=== PATIENT | male | born 1955 | race Caucasian/White ===

== ENCOUNTER 2023-02-03 11:45 | Outpatient (OUT) | payer MEDICARE, SELFPAY ==
[2023-02-03 12:19] LABS: Basophils Absolute Auto 0.1 10^3/uL (0.0-0.1); Basophils Percent Auto 0.6 % (0.2-2.0); Eosinophils Absolute Auto 0.3 10^3/uL (0.0-0.7); Eosinophils Percent Auto 3.7 % (0.9-7.0); Hematocrit 46.6 % (42.0-54.0); Hemoglobin 16.3 g/dL (14.0-18.0); Immature Granulocytes Abs Auto 0.04 10^3/uL (0.00-0.03); Immature Granulocytes Pct Auto 0.5 % (0.0-0.5); Lymphocytes Absolute Auto 2.3 10^3/uL (1.2-3.8); Lymphocytes Percent Auto 26.2 % (20.5-60.0); Mean Corpuscular Hemoglobin 32.1 pg (25.9-34.0); Mean Corpuscular Volume 91.9 fL (80.0-94.0); Mean Platelet Volume 8.9 fL (9.5-13.5); Monocytes Absolute Auto 0.7 10^3/uL (0.3-0.8); Monocytes Percent Auto 7.6 % (1.7-12.0); Neutrophils Absolute Auto 5.3 10^3/uL (1.4-6.5); Neutrophils Percent Auto 61.4 % (43.0-75.0); Platelet Count 268 10^3/uL (150-450); Red Blood Count 5.07 10^6/uL (4.70-6.10); Red Cell Distribution Width 13.1 % (11.0-15.0); White Blood Count 8.7 10^3/uL (4.0-11.0)
[2023-02-03 12:35] LABS: Alanine Aminotransferase 29 U/L (16-63); Albumin Globulin Ratio 0.9; Albumin Level 3.7 g/dL (3.4-5.0); Alkaline Phosphatase 68 U/L (46-116); Anion Gap 10.5; Aspartate Amino Transferase 18 U/L (15-37); BUN Creatinine Ratio 17.6; Bilirubin Direct 0.1 mg/dL (0.0-0.2); Bilirubin Total 0.7 mg/dL (0.2-1.0); Calcium 8.6 mg/dL (8.5-10.1); Carbon Dioxide 29.9 mmol/L (21.0-32.0); Chloride 104 mmol/L (98-107); Chol HDL Ratio 4.3; Cholesterol 202 mg/dL (<=200); Estimated GFR (African America >60 (>=60); Estimated GFR (Non-African Ame >60 (>=60); Globulin 3.9 g/dL; Glucose 97 mg/dL (74-106); HDL Cholesterol 47 mg/dL (40-60); Potassium 4.4 mmol/L (3.5-5.1); Sodium 140 mmol/L (136-145); Total Protein 7.6 g/dL (6.4-8.2); Triglycerides 99 mg/dL (<=150); Uric Acid 8.2 mg/dL (3.5-7.2); VLDL CHOLESTEROL 19.8 mg/dL
[2023-02-03 13:29] LABS: Prostate Specific Antigen Scrn 2.71 ng/mL (<=4.00)
== END 2023-02-03 11:46 | disposition home or self-care (01) ==
LOC: LAB 11:48
PROVIDERS: PCP Family Medicine; Visit Provider Family Medicine
DX: Z79.899 Other long term (current) drug therapy (principal); E78.5 Hyperlipidemia, unspecified; Z12.5 Encounter for screening for malignant neoplasm of prostate; M10.9 Gout, unspecified
CPT/HCPCS: 36415; 80048; 80061; 80076; 84550; 85025; G0103

== ENCOUNTER 2024-02-28 12:27 | Outpatient (OUT) | payer MEDICARE, SELFPAY ==
[2024-02-28 12:59] LABS: Basophils Percent Auto 0.4 % (0.2-2.0); Eosinophils Absolute Auto 0.2 10^3/uL (0.0-0.7); Eosinophils Percent Auto 2.4 % (0.9-7.0); Hematocrit 45.6 % (42.0-54.0); Hemoglobin 15.4 g/dL (14.0-18.0); Immature Granulocytes Abs Auto 0.05 10^3/uL (0.00-0.03); Immature Granulocytes Pct Auto 0.5 % (0.0-0.5); Lymphocytes Absolute Auto 2.4 10^3/uL (1.2-3.8); Lymphocytes Percent Auto 23.8 % (20.5-60.0); Mean Corpuscular HGB Conc 33.8 g/dL (29.9-35.2); Mean Corpuscular Hemoglobin 30.6 pg (25.9-34.0); Mean Corpuscular Volume 90.5 fL (80.0-94.0); Mean Platelet Volume 8.3 fL (9.5-13.5); Monocytes Absolute Auto 0.7 10^3/uL (0.3-0.8); Monocytes Percent Auto 6.9 % (1.7-12.0); Neutrophils Absolute Auto 6.5 10^3/uL (1.4-6.5); Platelet Count 292 10^3/uL (150-450); Red Blood Count 5.04 10^6/uL (4.70-6.10); Red Cell Distribution Width 13.2 % (11.0-15.0); White Blood Count 9.9 10^3/uL (4.0-11.0)
[2024-02-28 14:39] LABS: Prostate Specific Antigen Scrn 4.02 ng/mL (<=4.00)
[2024-02-28 14:55] LABS: Alanine Aminotransferase 29 U/L (16-63); Albumin Globulin Ratio 1.1; Albumin Level 3.9 g/dL (3.4-5.0); Alkaline Phosphatase 87 U/L (46-116); Anion Gap 14.4; Aspartate Amino Transferase 26 U/L (15-37); BUN Creatinine Ratio 16.5; Bilirubin Direct 0.2 mg/dL (0.0-0.2); Bilirubin Total 0.7 mg/dL (0.2-1.0); Calcium 9.1 mg/dL (8.5-10.1); Carbon Dioxide 27.6 mmol/L (21.0-32.0); Chloride 104 mmol/L (98-107); Chol HDL Ratio 3.2; Cholesterol 195 mg/dL (<=200); Estimated GFR (African America >60 (>=60 mL/min/1.73m^2); Estimated GFR (Non-African Ame >60 (>=60 mL/min/1.73m^2); Globulin 3.6 g/dL; Glucose 90 mg/dL (74-106); HDL Cholesterol 61 mg/dL (40-60); Sodium 142 mmol/L (136-145); Total Protein 7.5 g/dL (6.4-8.2); Triglycerides 81 mg/dL (<=150); Uric Acid 6.9 mg/dL (3.5-7.2); VLDL CHOLESTEROL 16.2 mg/dL
== END 2024-02-28 12:28 | disposition home or self-care (01) ==
LOC: LAB 12:32
PROVIDERS: PCP Family Medicine; Visit Provider Family Medicine
DX: E78.5 Hyperlipidemia, unspecified (principal); Z79.899 Other long term (current) drug therapy; M10.9 Gout, unspecified; Z12.5 Encounter for screening for malignant neoplasm of prostate
CPT/HCPCS: 36415; 80048; 80061; 80076; 84550; 85025; G0103

== ENCOUNTER 2024-03-14 12:47 | Outpatient (OUT) | payer MEDICARE, SELFPAY | END 2024-03-14 12:48 | disposition home or self-care (01) | LOC: PST 12:48 | PROVIDERS: PCP Family Medicine; Visit Provider Surgery | DX: Z01.818 Encounter for other preprocedural examination (principal); Z12.11 Encounter for screening for malignant neoplasm of colon ==

== ENCOUNTER 2024-03-21 08:50 | Day surgery (SDC) | payer MEDICARE, SELFPAY ==
[2024-03-21 09:20] VITALS: BP 138/96; PULSE 81; TEMP 36.4; O2SAT 97; BMI 24.9
[2024-03-21] MEDS: 0.9 % SODIUM CHLORIDE 500 ML 50 ML IV (09:30)
--- NOTE | 2024-03-21 11:26 | P.ON_ITS ---
Date of procedure: 03/21/24 Pre-op diagnosis: screening colonoscopy Post-op diagnosis: other (significant sigmoid diverticulosis, flat polyp at 27cm removed, external hemorrhoids- non thrombosed ) Procedure: Previous colonoscopy: 2010 procedure: colonoscopy with polypectomy cold snare at 27cm The patient was given IV conscious sedation.? The patient's SPO2 remained above 90% throughout the procedure. The colonoscope was inserted per rectum and advanced under direct vision to the cecum without difficulty.? The prep was good.? Findings: Terminal ileum os: normal Cecum/Ascending colon: normal Transverse colon: normal Descending/Sigmoid colon: significant diverticulosis, flat .6mm polyp removed completely via cold snare Rectum/Anus: examined in normal and retroflexed positions moderate internal hemorrhoids and large external hemorrhoids with small area of ulceration, no si gns of thrombosis Withdrawal Time was (minutes): 15 The colon was decompressed and the scope was removed.? The patient tolerated the procedure well. Recommendations/Plan: 1.? Lifestyle and dietary modifications as discussed 2.? F/U Biopsies 3. Referral to rectal surgeon for possible hemorrhoidectomy 4.? Discussed with the family, pt needs to be on daily stool softener and miralax Anesthesia: MAC Surgeon: Deo Arenas Estimated blood loss (mL): 3 Pathology: other (27cm colon polyp ) Condition: stable Disposition: PACU
[2024-03-21 11:53] VITALS: BP 143/92; PULSE 83; TEMP 36.9; O2SAT 96
[2024-03-21 12:08] VITALS: BP 151/95; PULSE 78; O2SAT 97
[2024-03-21 12:23] VITALS: BP 175/72; PULSE 78; O2SAT 98
== END 2024-03-21 12:23 | disposition home or self-care (01) ==
PROVIDERS: PCP Family Medicine; Visit Provider Surgery
PROC: (CPT 45385; principal; 2024-03-21 10:20)
DX: Z12.11 Encounter for screening for malignant neoplasm of colon (principal); K57.30 Diverticulosis of large intestine without perforation or abscess without bleeding; K64.4 Residual hemorrhoidal skin tags; K64.8 Other hemorrhoids; Z87.891 Personal history of nicotine dependence; K63.5 Polyp of colon
CPT/HCPCS: 45385; J2704

== ENCOUNTER 2024-09-20 14:12 | Outpatient (OUT) | payer MEDICARE, SELFPAY ==
--- OUTSIDE RECORDS SUMMARY | 2024-09-20 13:15 | XMS_ITS | Encounter Summary ---
Author Organization [facility] Address [address] [facility] [place] [address] Care Team Providers Care Laminating Machine Offbearer Name Role Phone Casey Dick MD Primary Care Provider [phone] Reason for Visit * Reason Comments UTI Encounter Details Date Type Department Care Team ([facility] st Contact Info) Description 09/20/2024 1:15 PM EDT Office Visit [facility] [address] [place] [address] Casey Dick MD [address] [place] [address] Polyuria (Primary Dx); Benign prostatic hyperplasia with nocturia Social History Tobacco Use Types Packs/Day Years Used Date Smoking Tobacco: Never Smokeless Tobacco: Never PHQ-2 Answer Date Recorded Patient Health Questionnaire-2 Score 0 02/28/2024 Sex and Gender Information Value Date Recorded Sex Assigned at Not on file Legal Sex Male 6:56 PM EDT Gender Identity Not on file Sexual Orientation Not on file documented as of this encounter Last Filed Vital Signs Vital Sign Reading Time Taken Comments Blood Pressure 118/66 09/20/2024 1:29 PM EDT Pulse 86 09/20/2024 1:29 PM EDT Temperature 36.2 C (97.1 F) 09/20/2024 1:29 PM EDT Respiratory Rate 20 09/20/2024 1:29 PM EDT Oxygen Saturation 96% 09/20/2024 1:29 PM EDT Inhaled Oxygen Concentration - - Weight 79.8 kg (176 lb) 09/20/2024 1:29 PM EDT Height 177.8 cm (5' 10 ) 09/20/2024 1:29 PM EDT Body Mass Index 25.25 09/20/2024 1:29 PM EDT documented in this encounter Progress Notes * Casey Dick MD - 09/20/2024 1:57 PM EDTAssociated Problem(s): Benign prostatic hyperplasia with nocturia Signs of enlarged prostate and try flomax. Repeat PSA with %free. * Casey Dick MD - 09/20/2024 1:57 PM EDTAssociated Problem(s): Polyuria Urinary symptoms likely related to BPH. UA normal and will send for culture. * Casey Dick MD - 09/20/2024 1:15 PM EDT Images from the original note were not included. Subjective Patient ID: Eric Ruvalcaba is a 69 y.o. male who presents for UTI. Concerned of UTI. C/o urinary symptoms for months. Increased frequency and urgency. At times feels like not able to hold and has to find bathroom. Weak stream and often will have hesitancy. Needs to strain to start flow of urine. Feels like not emptying all the way and at times dribbling at end of voiding. No change in color but stronger odor. Up 3-4 times a night to void. Labs in fall showed minimal elevation of PSA at 4.02. Review of Systems Constitutional: Negative for fatigue. Respiratory: Negative for cough, shortness of breath and wheezing. Cardiovascular: Negative for chest pain and palpitations. Gastrointestinal: Negative for abdominal pain, diarrhea, nausea and vomiting. Genitourinary: Negative for dysuria. Objective Physical Exam Constitutional: General: He is not in acute distress. Appearance: Normal appearance. HENT: Head: Normocephalic. Right Ear: Tympanic membrane and ear canal normal. Left Ear: Tympanic membrane and ear canal normal. Eyes: Extraocular Movements: Extraocular movements intact. Pupils: Pupils are equal, round, and reactive to light. Cardiovascular: Rate and Rhythm: Normal rate and regular rhythm. Heart sounds: No murmur heard. No friction rub. No gallop. Pulmonary: Breath sounds: Normal breath sounds. No wheezing, rhonchi or rales. Abdominal: General: Bowel sounds are normal. There is no distension. Palpations: Abdomen is soft. Tenderness: There is no abdominal tenderness. There is no guarding or rebound. Musculoskeletal: Left lower leg: No edema. Neurological: Mental Status: He is alert. Assessment/Plan Problem List Items Addressed This Visit Polyuria - Primary Urinary symptoms likely related to BPH. UA normal and will send for culture. Relevant Orders POCT Urinalysis dipstick (Completed) URINARY TRACT INFECTION (HTRX) Benign prostatic hyperplasia with nocturia Signs of enlarged prostate and try flomax. Repeat PSA with %free. Relevant Medications tamsulosin (Flomax) 0.4 MG 24 hr capsule Other Relevant Orders PSA, total and free documented in this encounter Plan of Treatment Upcoming Encounters Date Type Department Care Team (Late st Contact Info) Description 03/05/2025 11:30 AM EST [facility] [address] [place] [address] Casey Dick MD [address] [place] [address] Scheduled Orders Name Type Priority Associated Diagnoses Orde r Schedule PSA, total and free Lab Routine Benign prostatic hyperplasia with nocturia Expected: 09/20/2024 (Approximate), Expires: 09/20/2025 URINARY TRACT INFECTION (HTRX) Lab Routine Polyuria Expected: 09/20/2024 (Approximate), Expires: 09/20/2025 documented as of this encounter Procedures Procedure Name Priority Date/Time Associated Diagnosis Comments POCT URINALYSIS DIPSTICK Routine 09/20/2024 1:48 PM EDT Polyuria documented in this encounter Results * POCT Urinalysis dipstick (09/20/2024 1:48 PM EDT) Color, UA Yellow Clarity, UA Clear Glucose, UA Negative Negative - 2000(110) ++++ mg/dL Bilirubin, UA Negative Negative - 4(70) +++ mg/dL Ketones, UA Negative Negative - 160(16) ++++ mg/dL Spec Grav, UA 1.025 1 - 1.03 Blood, UA Negative Negative - 50 Ezequiel/mcL pH, UA 5.5 5 - 9 Protein, UA Negative Negative - 2000(20) ++++ mg/dL Urobilinogen, UA 0.2 0.2 - 12 mg/dL Leukocytes, UA Negative Negative - 500+++ Nitza/mcL Nitrite, UA Negative Negative - Positive Urine 09/20/2024 1:48 PM EDT Casey Dick MD POINT OF CARE TEST ENTER/EDIT OR DERABLES Final Result documented in this encounter Visit Diagnoses Diagnosis Polyuria- Primary Benign prostatic hyperplasia with nocturia documented in this encounter Additional Health Concerns Assessment Noted Time PHQ-9 Depression Total Score: 0 02/28/20 24 11:00 AM EST documented as of this encounter Care Teams Laminating Machine Offbearer Relationship Specialty Start Date End Date Casey Dick MD [address] [place] [address] PCP - General Family Medicine 09/21/23 documented as of this encounter
--- OUTSIDE RECORDS SUMMARY | 2024-09-20 14:18 | XMS_ITS | Clinical Summary ---
Author Organization [facility] Address [address] [place] [address] Care Team Providers Care Sales Development Representative Name Role Phone Casey Dick MD Primary Care Provider [phone] Allergies No known active allergies Medications allopurinol (Zyloprim) 100 MG tabletIndication s:Gout, arthritis Take 1 tablet (100 mg) by mouth Daily 90 tablet 3 03/23/2024 Active tamsulosin (Flomax) 0.4 MG 24 hr capsuleIndicatio ns:Benign prostatic hyperplasia with nocturia Take 1 capsule (0.4 mg) by mouth Daily 30 capsule 5 09/20/2024 Active Active Problems Problem Noted Date Diagnosed Date Polyuria 09/20/2024 Assessment & Plan (09/20/2024 1:57 PM EDT): Urinary symptoms likely related to BPH. UA normal and will send for culture. Benign prostatic hyperplasia with nocturia 09/20 Assessment & Plan (09/20/2024 1:57 PM EDT): Signs of enlarged prostate and try flomax. Repeat PSA with %free. Medicare annual wellness visit, subsequent 02/27 Assessment & Plan (02/28/2024 12:14 PM EST): Due for labs. Over 10 years since last colonoscopy and willing to have repeat procedure. Referral in chart. Discussed proper diet and regular aerobic exercise. Need aerobic exercise 5-6 days a week for 30 minutes at a time. Smaller portions and limit total calories. Tetanus every 10 years. Advised not to smoke. Encounter for long-term (current) use of medicat ions 02/28/2024 Screening PSA (prostate specific antigen) 2023 Dyslipidemia 09/21/2023 Gout, arthritis 09/21/2023 Assessment & Plan (09/21/2023 1:23 PM EDT): Painful flare of gout and start prednisone. Use motrin PRN for pain. Increased flares and start allopurinol. Resolved Problems Problem Noted Date Diagnosed Date Resolved Date Underweight 09/21/2023 02/28/2024 Encounters Date Type Department Care Team Description 09/20/2024 1:15 PM EDT Office Visit [facility] [address] [place] [address] Casey Dick MD Polyuria (Primary Dx); Benign prostatic hyperplasia with nocturia 09/20/2024 Bamboo flowsheet [facility] [address] [place] [address] Casey Dick MD from Last 3 Months Social History Tobacco Use Types Packs/Day Years Used Date Smoking Tobacco: Never Smokeless Tobacco: Never Tobacco Cessation:Counseling Given: Not Answered PHQ-2 Answer Date Recorded Patient Health Questionnaire-2 Score 0 02/28/2024 Sex and Gender Information Value Date Recorded Sex Assigned at Not on file Legal Sex Male 6:56 PM EDT Gender Identity Not on file Sexual Orientation Not on file Last Filed Vital Signs Vital Sign Reading [...] Mass Index 25.25 09/20/2024 1:29 PM EDT Plan of Treatment Upcoming Encounters Date Type Department Care Team (Late st Contact Info) Description 03/05/2025 11:30 AM EST Office Visit [facility] [address] [place] [phone] Casey Dick MD [address] [place] [phone] Health Maintenance Due Date Last Done Comments CT Colonography 1953 FIT-DNA 1955 FIT 1955 FOBT 1955 Sigmoidoscopy 1955 Pneumococcal Vaccine: 65+ Ye ars (3 of 3 - PCV20 or PCV21) 06/04/2021 06/04/2016, 09/18/2007 Influenza Vaccine (Season Ended) 2024 Medicare Annual Wellness (AWV) 02/27/2025 02/28/2024 Colonoscopy 03/21/2034 03/21/2024 Colorectal Cancer Screening 03/21/2034 Procedures Procedure Name Priority Date/Time Associated Diagnosis Comments POCT URINALYSIS DIPSTICK Routine 09/20/2024 1:48 PM EDT Polyuria from Last 3 Months Results * POCT Urinalysis dipstick (09/20/2024 1:48 [...] CARE TEST ENTER/EDIT OR DERABLES Final Result from Last 3 Months Insurance MEDICARE Care Teams Sales Development Representative Relationship Specialty Start Date End Date Casey Dick MD [address] [place] [address] PCP - General Family Medicine 09/21/23
--- OUTSIDE RECORDS SUMMARY | 2024-09-20 14:18 | XMS_ITS | Clinical Summary ---
Author Organization [facility] Address [id number] [address] [place] [address] Care Team Providers Care Research Specialist Name Role Phone Unavailable Primary Care Provider Unavailabl e Social History Tobacco Use Types Packs/Day Years Used Date Smoking Tobacco: Never Assessed Childcare Answer Date Recorded Childcare Unknown 09/28/2018 Employment Answer Date Recorded Employment Unknown 09/28/2018 Purpose - Life Answer Date Recorded Purpose and direction in life Unknown Sex and Gender Information Value Date Recorded Sex Assigned at Not on file Legal Sex Male 11:38 AM EDT Gender Identity Not on file Sexual Orientation Not on file Plan of Treatment Health Maintenance Due Date Last Done Comments Depression Screening 1965 Tobacco Screening 1965 Adult BMI Screening 1971 DTaP,Tdap and Td Vaccines (1 - Tdap) 01/17/1972 Zoster (Shingles) Vaccine (1 of 2) 2003 Fall Risk Screening 2018 Influenza Vaccine 12/18/2024 Medical Devices Not on file
--- OUTSIDE RECORDS SUMMARY | 2024-09-20 14:18 | XMS_ITS | Encounter Summary ---
Author Organization [facility] Address [address] [facility] [address] Care Team Providers Care Nail Setter Name Role Phone Casey Dick MD Primary Care Provider [phone] Encounter Details Date Type Department Care Team ([facility] Contact Info) Description 09/20/2024 Bamboo flowsheet [facility] [address] [place] [address] Casey Dick MD [address] [place] [phone] Social History Tobacco Use Types Packs/Day Years Used Date Smoking Tobacco: Never Smokeless Tobacco: Never PHQ-2 Answer Date Recorded Patient Health Questionnaire-2 Score 0 02/28/2024 Sex and Gender Information Value Date Recorded Sex Assigned at Not on file Legal Sex Male 6:56 PM EDT Gender Identity Not on file Sexual Orientation Not on file documented as of this encounter Plan of Treatment Upcoming Encounters Date Type Department Care Team ([facility] Contact Info) Description 03/05/2025 11:30 AM EST Office Visit [facility] [address] [place] [address] Casey Dick MD [address] [place] [phone] documented as of this encounter Visit Diagnoses Not on filedocumented in this encounter Additional Health Concerns Assessment Noted Time PHQ-9 Depression Total Score: 0 02/28/20 24 11:00 AM EST documented as of this encounter Care Teams Nail Setter Relationship Specialty Start Date End Date Caesy Dick MD [address] [place] [address] PCP - General Family Medicine 09/21/23 documented as of this encounter
[2024-09-21 08:09] LABS: PSA, Free 0.74 ng/mL; Prostate Specific Ag 3.1 ng/mL (0.0-4.0)
== END 2024-09-20 14:13 | disposition home or self-care (01) ==
LOC: LAB 14:14
PROVIDERS: PCP Family Medicine; Visit Provider Family Medicine
DX: N40.1 Benign prostatic hyperplasia with lower urinary tract symptoms (principal); R35.1 Nocturia
CPT/HCPCS: 36415; 84153; 84154

== ENCOUNTER 2025-03-05 12:57 | Outpatient (OUT) | payer MEDICARE, SELFPAY ==
--- OUTSIDE RECORDS SUMMARY | 2025-03-05 13:05 | XMS_ITS | CCD ---
Author Organization [facility] Care Team Providers Care [employer] Name Role Phone DR CASEY OSCAR Attending Unavailable DAYNE, DR CASEY Henderson Consulting Unavailable DAYNE, DR CASEY Henderson Primary Care Unavailable DAYNE, DR CASEY Henderson Admitting Unavailable Casey Oscar MD Primary Care Provider Sunday Arenas Attending Unavailable Sunday Arenas Admitting Unavailable Casey Oscar MD Unavailable CASEY OSCAR Attending Unavailable DAYNE, CASEY Attending Unavailable CASEY OSCAR Attending Unavailable SUNDAY ARENAS Attending Unavailable CASEY OSCAR Referring Unavailable Casey Oscar MD Primary Care Provider [phone] CASEY OSCAR Referring Unavailable CASEY OSCAR Primary Care Unavailable CASEY OSCAR Referring Unavailable CASEY OSCAR Primary Care Unavailable CASEY OSCAR Referring Unavailable CASEY OSCAR Primary Care Unavailable PARDEEP TEIXEIRA Admitting Unavailable PARDEEP TEIXEIRA Attending Unavailable PARDEEP TEIXEIRA Referring Unavailable CASEY OSCAR Primary Care Unavailable PARDEEP TEIXEIRA Attending Unavailable CASEY OSCAR Referring Unavailable CASEY OSCAR Primary Care Unavailable ANUM TINOCO Attending Unavailable CASEY OSCAR Referring Unavailable CASEY OSCAR Primary Care Unavailable Medications Current Medications MedicationDrug Class(es)DatesSig (Normalized)Sig (Original)ACETAMINOPHEN EXTRA STRENGTH ORAL (1 source)take 2 tablets by mouth once daily as neededACETAMINOPHEN EXTRA STRENGTH ORAL Take 2 tablets by mouth daily as needed. Activeallopurinol 100 mg oral tablet (19 sources)Xanthine Oxidase InhibitorStart: 19-94-1290erki 1 tablet by mouth once dailyallopurinol (Zyloprim) 100 MG tablet Indications: Gout, arthritis Take 1 tablet (100 mg) by mouth Daily 90 tablet 3 03/23/2024 ActiveStart: 09-21-2023 End: 42-33-5313tjbu 1 tablet by mouth once dailyallopurinol (Zyloprim) 100 MG tablet Indications: Gout, arthritis Take 1 tablet (100 mg) by mouth Daily 90 tablet 3 02/28/2024 Activetake 0.5 tablet by mouth in the morningallopurinoL (ZYLOPRIM) 100 mg tablet Take 0.5 tablets (50 mg total) by mouth in the morning. Activetamsulosin hydrochloride 0.4 mg oral capsule (9 sources)alpha-Adrenergic BlockerStart: 59-41-0234zwxe 1 capsule by mouth once dailytamsulosin (Flomax) 0.4 MG 24 hr capsule Indications: Benign prostatic hyperplasia with nocturia Take 1 capsule (0.4 mg) by mouth Daily 30 capsule 5 09/20/2024 ActivetraMADol hydrochloride 50 mg oral tablet (5 sources)Opioid AgonistStart: 12-12-2024 End: 14-20-1124qiel 1 tablet by mouth four times daily as needed for pain traMADoL (ULTRAM) 50 mg tablet Take 1 tablet (50 mg total) by mouth 4 (four) times a day as needed for pain. 12/12/2024 Active Completed/Discontinued Medications MedicationDrug Class(es)DatesSig (Normalized)Sig (Original)acetaminophen 325 mg / oxyCODONE hydrochloride 5 mg oral tablet (1 source)Opioid AgonistStart: 01-09-2025 End: 94-95-5222czkTRRVEI-acetaminophen (PERCOCET) 5-325 mg per tablet Indications: Left inguinal hernia Take 1 tablet by mouth every 6 (six) hours as needed for pain for up to 12 doses. Max Daily Amount: 4 tablets 12 tablet 01/09/2025 01/23/2025 Discontinued (Therapy completed)bisacodyl 5 mg delayed release oral tablet (2 sources)Stimulant LaxativeStart: 03-01-2024 End: 12-08-7841vdhh 1 tablet by mouth oncebisacodyl (Dulcolax) 5 MG EC tablet Indications: Colon cancer screening Take 1 tablet (5 mg) by mouth 1 time for 1 dose Do not crush, chew, or split. Take as detailed on clinic hand out for colonoscopy prep 4 tablet 03/01/2024 03/01/2024 Expiredibuprofen 800 mg oral tablet (1 source)Nonsteroidal Anti-inflammatory DrugStart: 01-09-2025 End: 19-41-0527qqpw 1 tablet by mouth every eight hours as needed for pain ibuprofen (MOTRIN) 800 mg tablet Take 1 tablet (800 mg total) by mouth every 8 (eight) hours as needed for pain. 30 tablet 01/09/2025 01/23/2025 Discontinued (Therapy completed)polyethylene glycol 3350 58418 mg powder for oral solution (2 sources)Osmotic LaxativeStart: 03-01-2024 End: 78-49-0255fhfa 17 g by mouth oncepolyethylene glycol, PEG, 3350 (Glycolax) 17 GM/SCOOP powder Indications: Colonoscopy Take 238 g bymouth 1 (one) time for 1 dose Take as detailed from clinic hand out for colonoscopy prep 238 g 03/0103/01/2024 Problems Active Problems Problem ClassificationProblemDateDocumented DateEpisodic/ChronicAbdominal hernia (11 sources)Left inguinal hernia ; Translations: [Unilateral inguinal hernia, without obstruction or gangrene, not specified as recurrent]Onset: 12-12-2024 10-22-8037BndthkraNtmoutewf of lipid metabolism (17 sources)Hyperlipidemia, unspecified; Translations: [Dyslipidemia]Onset: 604827-71-7233BvbbgbaTqjsdtyzp hypertension (3 sources)Hypertensive disorder; Translations: [Essential (primary) hypertension]Onset: 679926-83-9501JeqblxdJxttwvwlxfaje symptoms and ill- defined conditions (8 sources)Polyuria; Translations: [Polyuria]Onset: 131464-05-1712Qesecvcc Gout and other crystal arthropathies (16 sources)Gouty arthropathy; Translations: [Gout, unspecified]Onset: 610433-03-6783YwczelrAfmhykyuksd of prostate (8 sources)Nocturia due to benign prostatic hypertrophy; Translations: [Benign prostatic hyperplasia with lower urinary tract symptoms]Onset: 09-20-2024 89-61-5366ZwwiuytEqoqp aftercare (4 sources)Other terminal superintendent (current) drug therapy; Translations: [OTH JAIL CURRENT DRUG THERAPY]Onset: 38-32-5961ZkvrlmlwZojys gastrointestinal disorders (1 source)Personal history of other diseases of the digestive system; Translations: [Personal history of other diseases of the digestive system]Onset: 78-92-1422GvgmyftjXnehhrsw codes; unclassified (1 source)Other specified postprocedural states; Translations: [Other specified postprocedural states]Onset: 83-21-1034HfkhmrbgDzpoilgtxdip (2 sources)Autogenerated ProblemOnset: 892664-17-8290Aabtpapwwnaj (1 source)Post-opOnset: 01-23-2025 Past or Other Problems Problem ClassificationProblemDateDocumented DateEpisodic/ChronicMood disorders (14 sources)Mood disordersOnset: Other aftercare (16 sources)Long-term current use of drug therapy; Translations: [Other terminal superintendent (current) drug therapy]Onset: 890494-50-7127IglzapnkIiyir nutritional; endocrine; and metabolic disorders (14 sources)Underweight; Translations: [Underweight]Onset: 09-21-2023 Resolved: 925208-46-7196PykqrdnuFzyub screening for suspected conditions (not mental disorders or infectious disease) (20 sources)Encounter for screening for malignant neoplasm of prostate; Translations: [Patient encounter status]Onset: 050629-36-5467Xupzmesv Unclassified (2 sources)Patient encounter -99-1254Ofkuflxtefhs (1 source)Preprocedural examination pzao25-46-2350 Results Test NameValueInterpretationReference RangeFacilityCBC (NO DIFF)on 12-28-2024 Erythrocyte distribution width (RBC) [Ratio]14.1 %Xejnzq74.5-15ProGrace Medical CenterComment on above:Performed By: #### CBC #### [facility] ([facility]) [address] [place] [address] VIRHematocrit (Bld) [Volume fraction]41.1 %Katthj68-05XizGtemlvGrace Medical CenterComment on above:Performed By: #### CBC #### [facility] ([facility]) [address] [place] [address] VIRHemoglobin (Bld) [Mass/Vol]14.0 g/gIBbcczk51-13LorNvvrirGrace Medical CenterComment on above:Performed By: #### CBC #### [facility] ([facility]) [address] [place] [address] VIRMCH (RBC) [Entitic mass]30.9 jgUfjwyi54-70KszFwifcwGrace Medical CenterComment on above:Performed By: #### CBC #### [facility] ([facility]) [address] [place] [address] VIRMCHC (RBC) [Mass/Vol]34.1 g/cVDfxczq04-74JxzGptumhGrace Medical CenterComment on above:Performed By: #### CBC #### [facility] ([facility]) [address] [place] [address] VIRMCV (RBC) [Entitic vol]91 yYKwivlb62-909GhcNljkta Fremont HospitalComment on above:Performed By: #### CBC #### [facility] ([facility]) [address] [place] [address] VIRPlatelet mean volume (Bld) [Entitic vol]7.0 fLNormal7-12 Madison HealthComment on above:Performed By: #### CBC #### [facility] ([facility]) [address] [place] [address] VIRPlatelets (Bld) [#/Vol]255 10*3/pJNccywp784-046SugJltitd Fremont HospitalComment on above:Performed By: #### CBC #### [facility] ([facility]) [address] [place] [address] VIRRBC COUNT4.53 X10E12/LNormal4.1-5.7Madison HealthComment on above:Performed By: #### CBC #### [facility] ([facility]) [address] [place] [address] VIRWBC (Bld) [#/Vol]7.4 10*3/uLNormal4-11Madison HealthComment on above:Performed By: #### CBC #### [facility] ([facility]) [address] [place] [address] VIRCOMPREHENSIVE METABOLIC PANELon 09-41-4526Rwxnfdl [Mass/Vol] 3.9 g/dLNormal3.2-5.3PGrant HospitalComment on above:Performed By: #### CMP #### [facility] ([facility]) [address] [place] [address] VIRALP [Catalytic activity/Vol]59 U/VPwrlbq38-703KryTeqkrpGrace Medical CenterComment on above:Performed By: #### CMP #### [facility] ([facility]) [address] [place] [address] VIRALT [Catalytic activity/Vol]10 U/LNormal<=40ProGrace Medical CenterComment on above:Performed By: #### CMP #### [facility] ([facility]) [address] [place] [address] VIRAnion gap [Moles/Vol]10 mmol/LNormal5-15ProGrace Medical CenterComment on above:Performed By: #### CMP #### [facility] ([facility]) [address] [place] [address] VIRAST [Catalytic activity/Vol]15 U/LNormal<=41ProGrace Medical CenterComment on above:Performed By: #### CMP #### [facility] ([facility]) [address] [place] [address] VIRBilirubin [Mass/Vol]0.8 mg/dLNormal0.3-1.2PGrant HospitalComment on above:Performed By: #### CMP #### [facility] ([facility]) [address] [place] [address] VIRCalcium [Mass/Vol]8.7 mg/dLNormal8.5-10.5PGrant HospitalComment on above:Performed By: #### CMP #### [facility] ([facility]) [address] [place] [address] VIRChloride [Moles/Vol]103 mmol/LTrtwxo70-102TnlHhqayrGrace Medical CenterComment on above:Performed By: #### CMP #### [facility] ([facility]) [address] [place] [address] VIRCO2 [Moles/Vol]25 mmol/ZGgfsbf17-89OudLjnhltGrant HospitalComment on above:Performed By: #### CMP #### [facility] ([facility]) [address] [place] [address] VIRCreatinine [Mass/Vol]0.92 mg/dLNormal0.60-1.30ProGrace Medical CenterComment on above:Result Comment: METHOD TRACEABLE TO IDMS STANDARDPerformed By: #### CMP #### [facility] ([facility]) [address] [place] [address] VIRGFR/1.73 sq M.predicted among non-blacks MDRD (S/P/Bld) [Vol rate/Area]89 mL/min/{1.73_m2}Normal>=60ProGrace Medical CenterComment on above:Result Comment: Reported eGFR is based on the CKD-EPI 2020 equation that does not use a race coefficient.Performed By: #### CMP #### [facility] ([facility]) [address] [place] [address] VIRGlucose [Mass/Vol]85 mg/aMHxmssc94-45BmhXvrookGrace Medical CenterComment on above:Performed By: #### CMP #### [facility] ([facility]) [address] [place] [address] VIRPotassium [Moles/Vol]4.3 mmol/LNormal3.5-5.0Madison HealthComment on above:Performed By: #### CMP #### [facility] ([facility]) [address] [place] [address] VIRProtein [Mass/Vol]6.7 g/dLNormal6.0-8.0ProGrace Medical CenterComment on above:Performed By: #### CMP #### [facility] ([facility]) [address] [place] [address] VIRSodium [Moles/Vol]138 mmol/UQdovfv287-739SuuMggwyz Fremont HospitalComment on above:Performed By: #### CMP #### [facility] ([facility]) [address] [place] [address] VIRUrea nitrogen [Mass/Vol]16 mg/dLNormal5-27ProGrace Medical CenterComment on above:Performed By: #### CMP #### [facility] ([facility]) [address] [place] [address] VIRECG 12 leadon 75-11-4076IDDLBEITELIEOUHpjKwcaxn Health SystemPSA TOTAL+% FREEon 09-21-2024% FREE PSA23.9 %.[facility] County [facility] HospitalComment on above:The table below lists the probability of prostate cancer for men with non-suspicious CECE results and total PSA between 4 and 10 ng/mL, by patient age (Romulo et al, MATT 1998, 279:1542). % Free PSA 50-64 yr 65-75 yr 0.00-10.00% 56% 55% 10.01-15.00% 24% 35% 15.01-20.00% 17% 23% 20.01-25.00% 10% 20% >25.00% 5% 9% Please note: Romulo et al did not make specific recommendations regarding the use of percent free PSA for any other population of men. Performed at: [facility] [id number] Telephone Lineman: Jm Rob PhD, Phone: [phone] Prostate specific Ag [Mass/Vol]3.1 ng/mL0.0 - 4.0 ng/mLNOMS HealthcareComment on above:David ECLIA methodology. According to the [place] [employer], Serum PSA should decrease and remain at undetectable levels after radical prostatectomy. The AUA defines biochemical recurrence as an initial PSA value 0.2 ng/mL or greater followed by a subsequent confirmatory PSA value 0.2 ng/mL or greater. Values obtained with different assay methods or kits cannot be used interchangeably. Results cannot be interpreted as absolute evidence of the presence or absence of malignant disease. PSA, FREE0.74 ng/mLN/ANOMS HealthcareComment on above:David ECLIA methodology. CLINISYNCBates County Memorial HospitalUrinalysis macro (dipstick) panel (U)on 09-20-2024 Bilirubin, UANegativeNegative - 4(70) +++ mg/dLNOMS HealthcareBlood, UANegative Negative - 50 Ezequiel/mcLNOMS HealthcareClarity, UAClearNOMS HealthcareColor, UA YellowNOMS HealthcareGlucose, UANegativeNegative - 2000(110) ++++ mg/dLNOMS HealthcareInterpretation and review of laboratory resultsNormalNONC Healthcare Ketones, UANegativeNegative - 160(16) ++++ mg/dLNOMS HealthcareLeukocytes, UA NegativeNegative - 500+++ Nitza/mcLNOMS HealthcareNitrite, UANegativeNegative - PositiveNOMS HealthcarepH, UA5.55 - 9NOMS HealthcareProtein, UANegativeNegative - 2000(20) ++++ mg/dLNOMS HealthcareSpec Grav, UA1.0251 - 1.03NOMS Healthcare Urobilinogen, UA0.20.2 - 12 mg/dLNOMS HealthcareNOMS HealthcarePathology Request for Lab Corpon 40-06-2680Gifamladf Request for Lab CorprmHCA Florida West Hospital Physician GroupComment on above:Order Comment: PATHOLOGY GI SPECIMENResult Comment: See report. Scanned copy available in EMR. PERFORMED BY: [address] [address] PATHOLOGIST DISABILITY COUNSELOR DERICK JONES M.D.Performed By: #### PATH TO [facility] #### [address] [place] [address] USAALL BASIC METABOLIC PANELon 34-10-2344Tulpw gap [Moles/Vol]14.4 mmol/LNOMS HealthcareCalcium [Mass/Vol]9.1 mg/dL8.5 - 10.1 mg/dL NOMS HealthcareChloride [Moles/Vol]104 mmol/L98 - 107 mmol/LNOMS HealthcareCO2 [Moles/Vol]27.6 mmol/L21.0 - 32.0 mmol/LNOMS HealthcareCreatinine [Mass/Vol]1.09 mg/dL0.70 - 1.30 mg/dLNOMS HealthcareGFR/1.73 sq M.predicted CKD-EPI (S/P/Bld) [Vol rate/Area]>60>=60 mL/min/1.73m 2NOMS HealthcareGlucose [Mass/Vol]90 mg/dL74 - 106 mg/dLNOMS HealthcarePotassium [Moles/Vol]4 mmol/L3.5 - 5.1 mmol/LNOMS HealthcareSodium [Moles/Vol]142 mmol/L136 - 145 mmol/LNOMS HealthcareTBH EGFR- NON AF [place]>60>=60 mL/min/1.73m 2NOMS HealthcareUrea nitrogen [Mass/Vol]18 mg/dL7.0 - 18.0 mg/dLNONC HealthcareUrea nitrogen/Creatinine [Mass ratio]16.5 mg/mgNOMS HealthcareALL CBC WITH AUTO DIFFon 61-09-0814CYGSMWPBN ABSOLUTE AUTO0 NOMS HealthcareBasophils/100 WBC (Bld)0.4 %0.2 - 2.0 %[facility] Healthcare Eosinophils/100 WBC (Bld)2.4 %0.9 - 7.0 %NOMS HealthcareErythrocyte distribution width (RBC) [Ratio]13.2 %11.0 - 15.0 %NOMS HealthcareHematocrit (Bld) [Volume fraction]45.6 %42.0 - 54.0 %NOMS HealthcareHemoglobin (Bld) [Mass/Vol]15.4 g/dL 14.0 - 18.0 g/dLNONC HealthcareIMMATURE GRANULOCYTES ABS AUTO0.05HighNOMS HealthcareImmature granulocytes/100 WBC (Bld)0.5 %0.0 - 0.5 %[facility] Interpretation and review of laboratory resultsAbnormalNOMS Healthcare LYMPHOCYTES ABSOLUTE AUTO2.4NOCarondelet HealthLymphocytes/100 WBC (Bld)23.8 %20.5 - 60.0 %[facility] (RBC) [Entitic mass]30.6 pg25.9 - 34.0 pgFreeman Health SystemHC (RBC) [Mass/Vol]33.8 g/dL29.9 - 35.2 g/dLFreeman Health SystemV (RBC) [Entitic vol]90.5 fL80.0 - 94.0 fLBates County Memorial HospitalMONOCYTES ABSOLUTE AUTO0.7NONC HealthcareMonocytes/100 WBC (Bld)6.9 %1.7 - 12.0 %[facility] HospitalNEUTROPHILS ABSOLUTE AUTO6.5NOCarondelet HealthNeutrophils/100 WBC (Bld)66 %43.0 - 75.0 %[facility] Memorial HospitalPlatelet mean volume (Bld) [Entitic vol]8.3 fLLow9.5 - 13.5 fLBates County Memorial HospitalTB EO #0.2NOMS [facility] [id number] [facility] RBC5.04NOMercy [facility] WBC9.9B[facility] Memorial HospitalCLINISYNCNWestern Missouri Medical Center LIPID PROFILE (FASTING)on 44-41-0496ZGYN HDL RATIO3.2NOKLAHOMA HEARTH HOSPITAL SOUTH [facility] [place] HealthcareComment on above:3.3 - 4.4 LOW RISK 4.4 - 7.1 AVERAGE RISK 7.1 - 11.0 MODERATE RISK >11.0 HIGH RISK Cholesterol [Mass/Vol]195 mg/dLNINF - 200 mg/dLBates County Memorial HospitalCholesterol in HDL [Mass/Vol]61 mg/qJXqpl35 - 60 mg/dLVA HOSPITAL HealthcareComment on above:> or =60 mg/dl - LOW CARDIOVASCULAR RISK <40 mg/dl - HIGH CARDIOVASCULAR RISK Interpretation and review of laboratory resultsAbEaton Rapids Medical CenterMagnesium [Mass/Vol]118 mg/dLVA HOSPITAL HealthcareComment on above:<100 mg/dl OPTIMAL 100-129 mg/dl NEAR OR ABOVE OPTIMAL 130-159 mg/dl BORDERLINE HIGH 160-189 mg/dl HIGH >190 mg/dl VERY HIGH Magnesium [Mass/Vol]16.2 mg/dLBates County Memorial HospitalTriglyceride [Mass/Vol]81 mg/dLNINF - 150 mg/dLNOMS HealthcareALL URIC ACIDon 81-12-2414Xsjca [Mass/Vol]6.9 mg/dL 3.5 - 7.2 mg/dLBates County Memorial HospitalHMHP LIVER PANELon 56-06-2790Poefjmx [Mass/Vol]3.9 g/dL3.4 - 5.0 g/dLBates County Memorial HospitalALBUMIN GLOBULIN RATIO1.1NOKLAHOMA HEARTH [facility]OS[facility] [place] HealthcareALP [Catalytic activity/Vol]87 U/L46 - 116 U/LNOMS HealthcareALT [Catalytic activity/Vol]29 U/L16 - 63 U/LNOMS HealthcareAST [Catalytic activity/Vol]26 U/L 15 - 37 U/LNOMS HealthcareBilirubin [Mass/Vol]0.7 mg/dL0.2 - 1.0 mg/dLBates County Memorial HospitalBilirubin.indirect [Mass/Vol]0.2 mg/dL0.0 - 0.2 mg/dLBates County Memorial Hospital Globulin (S) [Mass/Vol]3.6 g/dLNONC HealthcareProtein [Mass/Vol]7.5 g/dL6.4 - 8.2 g/dLBates County Memorial HospitalNo Panel Informationon 19-35-8402XKLVMKVBJGPPA Healthcare SRMCOH PROSTATE SPECIFIC ANTIGEN SCRNon 38-92-6977Cggalbmszdlloe and review of laboratory resultsAbEaton Rapids Medical CenterPROSTATE SPECIFIC ANTIGEN SCRN4.02 ng/mLHighNINF - 4.00 ng/mLNOKLAHOMA HEARTH HOSPITAL SOUTH [facility] [place] HealthcareCLINISYNCNEllis Fischel Cancer CenterCBC AUTO DIFFon 93-12-0671YRAQ #0.0 103/ulNormal0.0-0.1[facility] Blanchard Valley HospitalComment on above: Performed By: #### CBC #### [facility] [address] [place] [address] Dr. Lori Ariassophils/100 WBC (Bld)0.5 %Normal0.2-2.0The [facility] Comment on above:Performed By: #### CBC #### [facility] [address] [place] [address] Dr. Lori Torres #0.2 103/ulNormal0.0-0.7The [facility]cy HealthComment on above: Performed By: #### CBC #### [facility] [address] [place] [address] Dr. Lori Dealosinophils/100 WBC (Bld)2.7 %Normal0.9-7.0[facility] Comment on above:Performed By: #### CBC #### [facility] [address] [place] [address] Dr. Lori Dealrythrocyte distribution width (RBC) [Ratio]12.8 %Tzshaf43.0-15.0 The Mercy HealthComment on above:Performed By: #### CBC #### [facility] [address] [place] [address] Dr. Lori SwiftHematocrit (Bld) [Volume fraction]48.4 %Zsnovt11.0-54.0The [facility]cy HealthComment on above:Performed By: #### CBC #### [facility] [address] [place] [address] Dr. Lori SwiftHemoglobin (Bld) [Mass/Vol]16.2 g/rXVnvvps45.0-18.0The [facility]cy HealthComment on above:Performed By: #### CBC #### [facility] [address] [place] [address] Dr. Lori Tolliver #0.06 10e3/ulCritically high0.00-0.03[facility] Comment on above:Performed By: #### CBC #### [facility] [address] [place] [address] Dr. Lori Tolliver %0.8 %Critically high0.0-0.5The [facility]cy HealthComment on above:Performed By: #### CBC #### [facility] [address] [place] [address] Dr. Lori SinghMPH #1.8 103/ulNormal1.2-3.8The Mercy HealthComment on above:Performed By: #### CBC #### [facility] [address] [place] [address] Dr. Lori Singhmphocytes/100 WBC (Bld)23.8 %Fbyciy11.5-60.0The Mercy HealthComment on above:Performed By: #### CBC #### [facility] [address] [place] [address] Dr. Lori GroveUAL DIFF REQNONormalThe Mercy HealthComment on above: Performed By: #### CBC #### [facility] [address] [place] [address] Dr. Lori Charlton (RBC) [Entitic mass]30.9 czKtzayu77.9-34.0The [facility]cy HealthComment on above:Performed By: #### CBC #### [facility] [address] [place] [address] Dr. Lori Charlton (RBC) [Mass/Vol]33.5 g/tVPmmdgn07.9-35.2The Mercy HealthComment on above:Performed By: #### CBC #### [facility] [address] [place] [address] Dr. Lori Charlton (RBC) [Entitic vol]92.4 lQPiglnx15.0-94.0The Mercy HealthComment on above:Performed By: #### CBC #### [facility] [address] [place] [address] Dr. Lori Brown #0.5 103/ulNormal0.3-0.8The [facility]cy HealthComment on above:Performed By: #### CBC #### [facility] [address] [place] [address] Dr. Lori Lentzocytes/100 WBC (Bld)7.1 %Normal1.7-12.0[facility] Comment on above:Performed By: #### CBC #### [facility] [address] [place] [address] Dr. Lori Chapa #4.9 103/ulNormal1.4-6.5The [facility]cy HealthComment on above:Performed By: #### CBC #### [facility] [address] [place] [address] Dr. Lori Ellisutrophils/100 WBC (Bld)65.1 %Sqrqfx07.0-75.0The [facility]cy Health[facility] on above:Performed By: #### CBC #### [facility] [address] [address] [address] Lori Chesterlet mean volume (Bld) [Entitic vol]9.0 fLCritically low 9.5-13.5The [facility] on above:Performed By: #### CBC #### [facility] [address] [address] [address] Lori SwiftPLT248 103/saVpwhgl036-845Odu [facility] on above: Performed By: #### CBC #### [facility] [address] [address] [address] Lori SwiftRBC5.24 106/ulNormal4.70-6.10The [facility] on above:Performed By: #### CBC #### [facility] [address] [place] [address] Dr. Lori SwiftWBC7.5 103/ulNormal4.0-11.0The [facility] on above: Performed By: #### CBC #### [facility] [address] [place] [address] Dr. Lori BruceID PROFILEon 48-50-8831ANQH-HDL RATIO [facility] on above:Result Comment: 3.3 - 4.4 LOW RISK 4.4 - 7.1 AVERAGE RISK 7.1 - 11.0 MODERATE RISK >11.0 HIGH RISKPerformed By: #### ALT, BMP, LIPID, AST #### [facility] [address] [place] [address] Dr. Lori SwiftCholesterol [Mass/Vol]201 mg/dLCritically high<=200The [facility] on above:Performed By: #### ALT, BMP, LIPID, AST #### [facility] [address] [place] [address] Dr. Lori Venturaesterol in HDL [Mass/Vol]51 mg/mMRiowow04-81CemB[facility] on above:Performed By: #### ALT, BMP, LIPID, AST #### [facility] [address] [address] [address] Lori SwiftCholesterol in LDL [Mass/Vol]133.6 mg/dLMetroHealth Main Campus Medical CenterComment on above:Performed By: #### ALT, BMP, LIPID, AST #### [facility] [address] [address] [address] Lori Venturaestermayda.total/Cholesterol in HDL [Mass ratio]3.9 {ratio} NormalBlanchard Valley Health System Blanchard Valley HospitalComment on above:Performed By: #### ALT, BMP, LIPID, AST #### [facility] [address] [address] [address] Lori Damico NORMAL> or = 60 mg/dl - LOW CARDIOVASCULAR RISK <40 mg/dl - HIGH CARDIOVASCULAR RISKMetroHealth Main Campus Medical CenterComment on above:Performed By: #### ALT, BMP, LIPID, AST #### [facility] [address] [address] [address] Lori SwiftLDL CALC NORMALSEE BELOWNoMercy Health Fairfield HospitalComment on above:Result Comment: <100 mg/dl OPTIMAL 100 - 129 mg/dl NEAR OR ABOVE OPTIMAL 130 - 159 mg/dl BORDERLINE HIGH 160 - 189 mg/dl HIGH >190 mg/dl VERY HIGH Performed By: #### ALT, BMP, LIPID, AST #### [facility] [address] [address] [address] Lori SwiftTriglyceride [Mass/Vol]82 mg/dLNormal<=150[facility] Comment on above:Performed By: #### ALT, BMP, LIPID, AST #### [facility] [address] [address] [address] Lori SwiftVLDL CALC16.4 mg/dLNoMercy Health Fairfield HospitalComment on above: Performed By: #### ALT, BMP, LIPID, AST #### [facility] [address] [address] [address] Lori SwiftPROF CHEM 8 (BAS METB)on 67-82-8871Zzcuc gap [Moles/Vol]9.7 mmol/LNormalBlanchard Valley Health System Blanchard Valley HospitalComment on above:Performed By: #### ALT, BMP, LIPID, AST #### [facility] [address] [place] [address] Dr. Lori SwiftCalcium [Mass/Vol]9.0 mg/dLNormal8.5-10.1The [facility] Comment on above:Performed By: #### ALT, BMP, LIPID, AST #### [facility] [address] [place] [address] Dr. Lori SwiftChloride [Moles/Vol]105 mmol/WUepomu91-752Ygi [facility] Comment on above:Performed By: #### ALT, BMP, LIPID, AST #### [facility] [address] [place] [address] Dr. Lori SwiftCO2 [Moles/Vol]30.8 mmol/ZWllgcm66.0-32.0The [facility] Comment on above:Performed By: #### ALT, BMP, LIPID, AST #### [facility] [address] [place] [address] Dr. Lori SwiftCreatinine [Mass/Vol]1.10 mg/dLNormal0.70-1.30The [facility] HealthComment on above:Performed By: #### ALT, BMP, LIPID, AST #### [facility] [address] [place] [address] Dr. Lori DealGFR-AF COSTA RICAN>60Normal>=60The [facility] HealthComment on above:Performed By: #### ALT, BMP, LIPID, AST #### [facility] [address] [place] [address] Dr. Lori DealGFR-NON AF COSTA RICAN>60Normal>=60The [facility] HealthComment on above:Performed By: #### ALT, BMP, LIPID, AST #### [facility] [address] [place] [address] Dr. Lori SwiftGlucose [Mass/Vol]118 mg/dLCritically qxid77-094Keh [facility] HealthComment on above:Performed By: #### ALT, BMP, LIPID, AST #### [facility] [address] [place] [address] Dr. Lori SwiftPotassium [Moles/Vol]4.5 mmol/LNormal3.5-5.1The [facility] Comment on above:Performed By: #### ALT, BMP, LIPID, AST #### [facility] [address] [address] [address] Lori SwiftSodium [Moles/Vol]141 mmol/ZPdwcps888-428Dqu [facility] Comment on above:Performed By: #### ALT, BMP, LIPID, AST #### [facility] [address] [address] [address] Lori SwiftUrea nitrogen [Mass/Vol]18.0 mg/dLNormal7.0-18.0The [facility] HealthComment on above:Performed By: #### ALT, BMP, LIPID, AST #### [facility] [address] [address] [address] Lori Apodaca nitrogen/Creatinine [Mass ratio]16.4 mg/mgNormalThe [facility]cy HealthComment on above:Performed By: #### ALT, BMP, LIPID, AST #### [facility] [address] [address] [address] Lori Napoles 37-50-9639YXE [Catalytic activity/Vol]13 U/LCritically low 15-37The [facility] HealthComment on above:Performed By: #### ALT, BMP, LIPID, AST #### [facility] [address] [address] [address] Lori Jennings 61-00-9476YMD [Catalytic activity/Vol]20 U/OMrbfrq57-10Qtb [facility] HealthComment on above:Performed By: #### ALT, BMP, LIPID, AST #### [facility] [address] [address] [address] Lori Swift Vital Signs Date TimeVital SignValuePerforming PxqntajdaCnwxfhtu38-17-8596 10:38-0400Body irwrrj302.7 cmAnum Tinoco APRN-ORTHOPAEDIC PHYSICIAN ASSISTANT Work Phone: [facility] [employer] Tmpaqg52-08-6325 10:38-0400Body mass index (BMI) [Ratio]24.48 kg/n7FrajgboAnum Tinoco APRN-RADHA Work Phone: [facility] [employer] Uvvcch50-61-9853 10:38-0400Body lksous37.03 kgAnum Tinoco APRN-RADHA Work Phone: [facility]10-07-2025 10:38-0400Diastolic blood dhlvwjid90 mm[Hg]Anum Tinoco APRN-RADHA Work Phone: [facility]10-07-2025 10:38-0400Heart rate 86 /minAnum Tinoco APRN-RADHA Work Phone: [facility]10-07-2025 10:38-0400Systolic blood mm[Hg]Anum Tinoco APRN-RADHA Work Phone: [facility] [employer] Eiyipe88-28-5879 10:07-0400Body mdzytl651.8 cmPardeep Teixeira DO Work Phone: [facility]09-10-2025 10:07-0400Body mass index (BMI) [Ratio]23.68 kg/q1Yxhtvspshelly Camps DO Work Phone: [facility]09-10-2025 10:07-0400Body ezkweb60.84 kgMicshelly Camps DO Work Phone: [facility] [employer] Tvoxpk32-28-8050 10:07-0400Diastolic blood xqjxzfbe70 mm[Hg]Pardeep Teixeira DO Work Phone: [facility]09-10-2025 10:07-0400Systolic blood mm[Hg]Pardeep Teixeira DO Work Phone: [facility]08-26-2025 14:07-0400Body .8 cmCasey Oscar MD Work Phone: [facility] HospitalQvwutdyynh86-36-1579 14:07-0400Body mass index (BMI) [Ratio]22.96 kg/m2Casey Oscar MD Work Phone: noCarondelet HealthPbrkdunmji64-34-0789 14:07-0400Body temperature 97.5 [degF]Casey Oscar MD Work Phone: [facility] HospitalTnmyhzrsvg25-66-9230 14:07-0400Body .58 kgCasey Oscar MD Work Phone: [facility] HospitalCttyaasqrd30-59-1840 14:07-0400Diastolic blood sljfjuml77 mm[Hg]Casey Oscar MD Work Phone: [facility] HospitalUyfnhxlrvs82-88-7852 14:07-0400Heart rate87 /min Casey Oscar MD Work Phone: [facility] HospitalLbmqkfoafh30-38-2887 14:07-0400Respiratory rate22 /minCasey Oscar MD Work Phone: [facility] HospitalVksjbhcycv09-71-3687 14:07-1098NdY5% (BldA) [Mass fraction]97 %Casey Oscar MD Work Phone: [facility] HospitalLebhiinzwt15-00-0334 14:07-0400Systolic blood elumxvwc348 mm[Hg]Casey Oscar MD Work Phone: [facility] HospitalMyngvyvgba07-13-5111 13:29-0400Body jiubej322.8 cmCasey Oscar MD Work Phone: [facility] HospitalAoufiafrbp08-72-0372 13:29-0400Body mass index (BMI) [Ratio]25.25 kg/m2Casey Oscar MD Work Phone: [facility] HospitalYuliflnvtz73-39-4680 13:29-0400Body temperature 97.11 [degF]Casey Oscar MD Work Phone: [facility] HospitalIdxkjrxsxb73-02-1777 13:29-0400Body .83 kgCasey Oscar MD Work Phone: noCarondelet HealthCqhyhwcpof91-04-1497 13:29-0400Diastolic blood mnphwebq75 mm[Hg]Casey Oscar MD Work Phone: [facility] HospitalIxlmodnhvj82-78-2128 13:29-0400Heart rate86 /min Casey Oscar MD Work Phone: [facility] HospitalUspnvffhkn15-66-3488 13:29-0400Respiratory rate20 /minCasey Oscar MD Work Phone: [facility] HospitalQnhpyxxqul70-09-3841 13:29-6288RbR3% (BldA) [Mass fraction]96 %Casey Oscar MD Work Phone: [facility] HospitalEdrbtamciv21-65-0132 13:29-0400Systolic blood isvhzqkw689 mm[Hg]Casey Oscar MD Work Phone: 1(443)[address] [place] [address]-13-2024 13:57-0500Body edztxc556.8 cmSunday Arenas DO Work Phone: 1(546)[address] [place] [address]-13-2024 13:57-0500Body mass index (BMI) [Ratio]25.4 kg/m2Sunday Arenas DO Work Phone: 1(510)[address] [place] [address]-13-2024 13:57-0500Body ccbiwl71.29 kgSunday Arenas DO Work Phone: 1(992)[address] [place] [address]-13-2024 13:57-0500Heart rate91 /min Sunday Arenas DO Work Phone: 1(213)[address] [place] [address]-13-2024 13:57-0500Respiratory rate14 /minSunday Arenas DO Work Phone: 1(336)[address] [place] [address]-13-2024 13:57-4847LtP6% (BldA) [Mass fraction]96 %Sunday Arenas DO Work Phone: 1(478)[address] [place] [address]-11-2024 11:39-0500Body rpheuq217.8 cmCasey Oscar MD Work Phone: [facility] HospitalNrfwqxwmxm78-32-4441 11:39-0500Body mass index (BMI) [Ratio]25.4 kg/m2Casey Oscar MD Work Phone: [address] [address]Fyovichwke07-87-1932 11:39-0500Body temperature 97.59 [degF]Casey Oscar MD Work Phone: [address] [address]Mugmaelxsi43-66-5628 11:39-0500Body .29 kgCasey Oscar MD Work Phone: [address] [address]Xgmgfqhpwe44-78-1803 11:39-0500Diastolic blood hmutqezi08 mm[Hg]Casey Oscar MD Work Phone: [address] [address]Awiowiqwxu21-76-4379 11:39-0500Heart rate87 /min Casey Oscar MD Work Phone: [address] [address]Eeshubcojd66-83-9761 11:39-0500Respiratory rate18 /minCasey Oscar MD Work Phone: [address] [address]Udqwnypuvc40-00-7722 11:39-9222MkX0% (BldA) [Mass fraction]96 %Casey Oscar MD Work Phone: [address] [address]Ywqiojkzwt40-47-5162 11:39-0500Systolic blood kmswdodh493 mm[Hg]Casey Oscar MD Work Phone: noNC [facility] Encounters Encounter DateEncounter TypeCare ProviderFacilityStart: 01-23-2025 End: 08-01-4149Pfbfao follow up visit related to original Noah Tinoco ENGINEERING AGENT-ORTHOPAEDIC PHYSICIAN ASSISTANT Work Phone: [facility] SurgeryComment on above: Status post left inguinal hernia repair (Primary Dx)Start: 01-23-2025 End: 87-97-8550ldkgsbrwjdDJEEWIX A CARROLLMcCullough-[facility] Start: 01-09-2025 End: 19-95-4145Pylpvxopea and management of inpatientMercy Health Defiance Hospitaltart: 12-28-2024 End: 69-43-6726Xvrccko encounter procedurePmh Pre-Admission Testing [address] [place] [address] - Pre AdmitComment on above:Preop examination (Primary Dx); Hypertension, unspecified typeStart: 12-28-2024 End: 00-83-9879Aiksfgfkzldcu examination done[address] Streettart: 12-28-2024 End: 85-79-4308qhqheygybsDBWSWooster Community Hospitaltart: 12-28-2024 Encounter for other preprocedural examinationACMC Healthcare Systemtart: 12-27-2024 End: 74-21-9576Kffvhp outpatient new 45 minutesCardington Jose Ramon CampAcadia Healthcare Work Phone: [facility] SurgeryComment on above: Left inguinal hernia (Primary Dx)Start: 12-27-2024 End: 87-60-1937lrhvyamvryGZLINZQOverlake [facility] Start: 12-12-2024 End: 81-82-4032Lytruc Bogdan Oscar MD Work Phone: noms CWM FMStart: 12-12-2024 End: 67-66-2223Juevlr flowsErika Oscar MD Work Phone: noms CWM FMStart: 12-12-2024 End: 46-98-1789Sclyky outpatient visit 15 minutesCasey Oscar MD Work Phone: noms CWM FMComment on above:Left inguinal hernia (Primary Dx)Start: 12-12-2024 End: 41-91-8568ydhdbgpuoeUMRX NADERERNot AvailableStart: 09-20-2024 End: 19-16-2265Mrqebc flowsErika Oscar MD Work Phone: noms CWM FMStart: 09-20-2024 End: 19-48-2164Pfhuao Bogdan Oscar MD Work Phone: noms CWM FMStart: 09-20-2024 End: 16-54-5467Iqmxysrmy Result EncounterCasey Oscar MD Work Phone: noms External Department UnsolicitedStart: 09-20-2024 End: 89-64-3607Exvsfj outpatient visit 15 minutesCasey Oscar MD Work Phone: noms CWM FMComment on above:Polyuria (Primary Dx); Benign prostatic hyperplasia with nocturiaStart: 09-20-2024 End: 57-46-9802xbwlmcpbvxBAOI NADERERNot AvailableStart: 03-21-2024 End: 08-95-2864vfbubabqfzObdf DuckettFacility:[facility] Start: 03-01-2024 End: 40-98-6349Xrnatx flowsheetSundya Dagoberto DO Work Phone: [facility] BWM GENSStart: 03-01-2024 End: 47-50-2450Ckpxld flowsheetSunday Dagoberto DO Work Phone: [facility] BWM GENSStart: 03-01-2024 End: 97-04-6156Kenqwwf encounter procedureSunday Dagoberto DO Work Phone: NOIR BWM GENSComment on above:Colon cancer screening (Primary Dx)Start: 03-01-2024 End: 16-82-5109wkdymwyaljRNDB DUCKETTNot AvailableStart: 02-28-2024 End: 13-94-1360Rxvwfm Bogdan Oscar MD Work Phone: NOMB CWM FMStart: 02-28-2024 End: 09-83-2382Qddfnt Bogdan Oscar MD Work Phone: NOSJ CWM FMStart: 02-28-2024 End: 77-12-1683Wzakwsieu Result EncounterCasey Oscar MD Work Phone: noms External Department UnsolicitedStart: 02-28-2024 End: 34-28-7721Dkphndm encounter procedureCasey Oscar MD Work Phone: NOBZ HealthcareStart: 02-28-2024 End: 92-48-5551Ghcfmr follow up visit related to original Samson Oscar MD Work Phone: noms CWM FMComment on above:Medicare annual wellness visit, subsequent (Primary Dx); Dyslipidemia (CMS/HCC); Encounter for long-term (current) use of medications; Screening PSA (prostate specific antigen); Gout, arthritis; Colon cancer screeningStart: 02-28-2024 End: 48-41-4556fxrkryqywmFOEX NADERERNot AvailableStart: 12-29-2021 End: 40-35-0021samphltgpgBQ MARC A NADERERFacility:H1 Procedures DateProcedureProcedure DetailPerforming ClinicianStart: 61-99-8208PKI TOTAL+% FREECasey Oscar MD Work Phone: Start: 02-54-1877Dvfzu dip stick/tablet rgnt non-auto w/o micrscpMarc Dayne MCKEON Work Phone: Start: 30-93-1065TbvrjqcwbmnIvqu Naderer MD Work Phone: Start: 69-29-1943MZS BASIC METABOLIC PANELCasey Oscar MD Work Phone: Start: 40-14-6711IVA CBC WITH AUTO DIFFMarjavier Oscar MD Work Phone: Start: 69-28-9804IFJ LIPID PROFILE (FASTING)Casey Oscar MD Work Phone: Start: 30-33-0822DWK URIC ACIDCasey Oscar MD Work Phone: Start: 61-09-0956HTKC LIVER PANELCasey Oscar MD Work Phone: Start: 17-99-5408CNQWHK PROSTATE SPECIFIC ANTIGEN SCRN Casey Oscar MD Work Phone: Start: 76-90-8136GEV screeningDR CASEY CERVANTESomment on above:Performed By: #### PSASC #### [facility] [address] [place] [address] Dr. Lori SwiftHistory of repair of inguinal herniaStatus post left inguinal hernia repairJessjaswant Tinoco ENGINEERING AGENT-ORTHOPAEDIC PHYSICIAN ASSISTANT Work Phone: Plan of Treatment DateCare ActivityDetailAuthorStart: 08-32-7645Pxisysqqg for malignant neoplasm of colonNOMS HealthcareStart: 06-18-2880Chmtw BMI ScreeningAdult BMI Screening [facility]ertart: 99-31-0328Eknimeg ScreeningTobacco Screening [facility] SystemStart: 34-14-3139Vppcbff ScreeningTobacco Screening [facility] Centertart: 21-50-9491Kctpa BMI ScreeningAdult BMI Screening [facility] Centertart: 83-92-0664Khbhbsy ScreeningTobacco Screening [facility] Centertart: 03-05-2025 End: 55-02-4452Hiarlxk encounter dsrlqulpz67/17/2025 11:30 AM EST Office Visit [facility] [address] [place] [address] Casey Oscar MD [address] [place] [address] [facility] FMStart: 11-11-2025Medicare Annual Wellness (AWV)Medicare Annual Wellness (AWV)[facility]OM[facility] HealthcareStart: 01-23-2025 End: 85-35-3852Suzskvm encounter gujuztjsx72/07/2025 10:45 AM EDT Office Visit [facility] [address] [place] [address] Anum Tinoco, ENGINEERING AGENT-ORTHOPAEDIC PHYSICIAN ASSISTANT [address] [place], [place] [address] [facility] Physicians General SurgeryStart: 01-09-2025 End: 97-74-1340Sjfksyvfw to same day surgery arrmha4001/09/2025 9:30 AM EDT - 01/09/2025 10:45 AM EDT Surgery [facility] - Surgery [address] [place] [address] Pardeep Teixeira, [address], [place] [address] REPAIR HERNIA INGUINAL [73944 (CPT )][facility] Comment on above:REPAIR HERNIA INGUINAL [16114 (CPT )]Start: 01-09-2025 End: 95-29-7618Mzb 1st ingun hrna age 3 yrs/> reducibleREPAIR HERNIA INGUINAL left inguinal hernia 01/09/2025 9:30 AM EDTFREMONT SURGERYStart: 01-09-2025 Subsequent hospital visit by hrykvklyj45/23/2025 9:30 AM EDT Hospital Encounter [facility] Surgery [address] [place] [address] Pardeep Teixeira DO [address] [place] [address] [facility] SurgeryStart: 12-28-2024 End: 16-18-8907Fopcsqa encounter eydknlzyt93/11/2025 11:15 AM EDT Procedure visit [facility] - Pre Admit [address] [place] [address] [phone] [facility] AdmitStart: 52-16-0026Lsynlmxqv vaccinationVA HOSPITAL HealthcareStart: 12-12-2024 End: 27-96-9946Axpjydx encounter onlwiwfmn99/26/2025 2:00 PM EDT Office Visit [facility] [address] [place] [address] Casey Oscar MD [address] [place] [address] ArrivedNONC CWM FMComment on above:ArrivedStart: 09-20-2024 End: 37-80-3654CVY, total and freePSA, total and free Lab Routine Benign prostatic hyperplasia with nocturia Expected: 09/20/2024 (Approximate), Expires: 09/20/2025[facility] Work Phone: Comment on above:Expected: 09/20/2024 (Approximate), Expires: 09/20/2025Start: 41-30-4152Pnbocasab for malignant neoplasm of colon Colorectal Cancer ScreeningVA HOSPITAL HealthcareComment on above:Postponed from 1953 (Patient Refused)Start: 09-20-2024 End: 04-94-0586DEKJEVP TRACT INFECTION (HTRX)URINARY TRACT INFECTION (HTRX) Lab Routine Polyuria Expected: 09/20/2024 (Approximate), Expires: 09/20/2025NONC HealthcareComment on above:Expected: 09/20/2024 (Approximate), Expires: 09/20/2025Start: 09-20-2024 End: 53-42-7906Jmpgglg encounter bpxzcnizj96/04/2025 1:15 PM EDT Office Visit [facility] [address] [place] [address] Casey Oscar MD [address] [place] [address] ArrivedPLACENTIA-LINDA [facility]ITAL FMComment on above:ArrivedStart: 02-28-2024 End: 80-87-1201Owfdp metabolic 1998 panel - Serum or PlasmaBasic metabolic panel Lab Routine Encounter for long-term (current) use of medications Expected: 02/2024 (Approximate), Expires: 02/27/2025[facility] Work Phone: Comment on above:Expected: 02/28/2024 (Approximate), Expires: 02/27/2025Start: 02-28-2024 End: 60-48-5026AJM W Auto Differential panel - BloodCBC and differential Lab Routine Encounter for long-term (current) use of medications Expected: 02/17 (Approximate), Expires: 02/27/2025[facility] HealthcareComment on above: Expected: 02/28/2024 (Approximate), Expires: 02/27/2025Start: 02-28-2024 End: 61-17-4338Lzgfpde function 2000 panel - Serum or PlasmaHepatic function panel Lab Routine Encounter for long-term (current) use of medications Expected: 02/28/2024 (Approximate), Expires: 02/27/2025NONC HealthcareComment on above: Expected: 02/28/2024 (Approximate), Expires: 02/27/2025Start: 02-28-2024 End: 44-02-1403Lrhmr 1996 panel - Serum or PlasmaLipid panel Lab Routine Dyslipidemia (CMS/HCC) Expected: 02/28/2024 (Approximate), Expires: 02/27/2025 NOM[facility] HealthcareComment on above:Expected: 02/28/2024 (Approximate), Expires: 02/27/2025Start: 02-28-2024 End: 67-96-0406Bqxxrbxd specific Ag [Mass/volume] in Serum or PlasmaPSA Lab Routine Screening PSA (prostate specific antigen) Expected: 02/28/2024 (Approximate), Expires: 02/27/2025NONC HealthcareComment on above:Expected: 02/28/2024 (Approximate), Expires: 02/27/2025Start: 02-28-2024 End: 94-32-3640Konjm [Mass/volume] in Serum or PlasmaUric acid Lab Routine Gout, arthritis Expected: 02/28/2024 (Approximate), Expires: 02/27/2025NONC HealthcareComment on above:Expected: 02/28/2024 (Approximate), Expires: 02/27/2025Start: 83-42-5627Sngkjlyvi vaccinationInfluenza Vaccine (#1)[facility] HealthcareStart: 90-88-8343Qiwpdoettuvw Vaccine: 65+ Years (3 of 3 - PCV20 or PCV21)Pneumococcal Vaccine: 65+ Years (3 of 3 - PCV20 or PCV21)[facility] Start: 15-55-2894Nxfkonwivcei Vaccine: 65+ Years (3 of 3 - PPSV23 or PCV20) Pneumococcal Vaccine: 65+ Years (3 of 3 - PPSV23 or PCV20)[facility] HealthcareStart: 36-03-8570Sorbgzdet aortic aneurysm screeningAbdominal Aortic Aneurysm (AAA) ScreenProSelect Medical Specialty [facility] SystemStart: 25-79-6783Ygox Risk ScreeningFall Risk ScreeningProAdena Fayette Medical Centertart: 55-52-4603Wvijwdqkjbnjqo of varicella zoster vaccineZoster (Shingles) Vaccine (2 of 3)[facility] PLAYD8 SystemStart: 58-41-7906DSaN,Tdap and Td Vaccines (1 - Tdap)DTaP,Tdap and Td Vaccines (1 - Tdap)[facility] [address] Hospitaltart: 61-88-1474Uovhhilhzj ScreeningDepression ScreeningProAdena Fayette Medical Centertart: 41-02-9502Cdtcifeuj for malignant neoplasm of colonVA HOSPITAL Healthcare End: 87-96-7118QAG panel - Blood by Automated countCBC without diff Lab Routine Left inguinal hernia 1 Occurrences starting 12/27/2024 until 12/27/2025[facility] Work Phone: Comment on above:1 Occurrences starting 12/27/2024 until 12/27/2025 End: 06-66-2263Hsjthtpascete metabolic 2000 panel - Serum or PlasmaComprehensive metabolic panel Lab Routine Left inguinal hernia 1 Occurrences starting 12/27/2024 until 12/27/2025[facility] SystemComment on above:1 Occurrences starting 12/27/2024 until 12/27/2025 End: 32-33-0421Ahca Inguinal Hernia RepairOpen Inguinal Hernia Repair GI Routine Left inguinal hernia 1 Occurrences starting 12/27/2024 until12/27/2025[facility] HospitalComment on above:1 Occurrences starting 12/27/2024 until 12/27/2025 Immunizations Immunization DateImmunizationNotesCare SuardcyfUezewfbm62-25-0127mzvkrc vaccine, unspecified formulationPardeep Teixeira DO Work Phone: [facility] Payers DatePayer CategoryPayerPolicy [id number]-pay2018Medicare [id number] [id number] 82-12-4057Vktegrm Health [id number] .[id number] 2.16.840.1.886247.3.57[id number] 2.16.840.1.391130.3.57[id number] 2.16.840.1.256502.3.57[id number] 2.840.1.987674.3.57[id number] 2.16840.1.944013.3.57[id number] 2.16840.1.572177.3.57[id number] 2.0.1.901024.3.57[id number] 2.0.1.472691.3.57[id number] 2.0.1.230014.3.57[id number] 2.840.1.516449.3.579.2.1286Commercial Managed Care - [facility] [id number] Social History DateTypeDetailFacilityStart: 26-92-6444Vgnltkj smoking status NHISNever smoked tobaccoNONC HealthcareStart: 09-21-2023 End: 40-53-0485Qbqdigq use and exposureSmokeless tobacco non-userNONC Healthcare Start: 05-30-2020 End: 36-26-1511Xpwpann of Social functionNOMS HealthcareStart: 05-30-2020 End: 91-81-3647Rmrzawq use panelNONC HealthcareStart: 16-59-1520Gtp assigned at birthNot on fileNOMS HealthcareStart: 10-26-1920Ypkwtgh smoking status NHIS Ex-smokerProSelect Medical [facility] SystemHistory of tobacco useCurrent smokerLancaster Municipal Hospital SystemHistory of tobacco useCigarette SmokerLancaster Municipal Hospital SystemStart: 12-27-2024 End: 71-97-1175Qfosvyqjd beverage intakeEx-drinker (finding)[facility] HospitalChildcareUnknowBarnesville Hospital SystemStart: 38-97-5268Uuphakh Comment sober for over 8 years as of 2024Sentara Albem[facility]le Medical Centertart: 77-62-7945SilYcsh (finding)[facility] Medical Equipment Procedure CodeEquipment CodeEquipment Original TextEquipment IdentifierDatesMesh 3in Lg Pp Srgpro Nabsb Knit Plg Srg Strl Clr Hrn Rpl [id number] - [id number] - [id number]: 01-09-2025 Goals DatePatient GoalDesired Activity/StatePersonal health goal Clinical Notes 02-28-2024 to 01-23-2025 Note Date & [id number] History of Present illness Narrative* Anum Tinoco, NATASHA-ORTHOPAEDIC PHYSICIAN ASSISTANT - 01/23/2025 10:45 AM EDT 70-year-old male status post open left inguinal hernia repair with mesh on 01/09/2025. He is doing well and has no concerns. He states pain was significant for the first few days, but is much better now. He is tolerating oral intake. He denies fever/chills. He is having good bowel function. states scrotum was black/blue after surgery but is no longer. On exam, left inguinal incision is clean, dry and intact. No swelling. No signs of infection. No pushing, pulling, bending, lifting over 10 lb for another month. Follow up as needed. NICK Ragsdale 01/23/25 1120 documented in this encounterWexner Medical CenterApplits [id number] Instructions* Patient Instructions* Kacey Cruz RN - 12/28/2024 11:15 AM EDT Preoperative Education Checklist- General Surgery date: 01/09/25 Surgery time: 930a Arrival time: 730a 1. Bring a photo ID and your insurance card with you the day of surgery. You will check in at the main lobby of the [facility]- registration desk is straight ahead as soon as you walk in. Tell them you are here for surgery. 2. If you have a Living Will/Durable Power of Stonem[employer] Apprentice for Health Care that is not on file here, please bring a copy the day of surgery. 3. Please shower/bathe the night before surgery with the provided soap or wipes. Do not shower the morning of surgery- you will do use wipes when you arrive here at the hospital before getting into your surgical gown. Do not shave the area of your procedure for 2 days prior to your surgery. 4. NO powder, lotion, perfume/cologne, aftershave, make-up, deodorant, or hair products after you have bathed. 5. NO nail peruvian/acrylic on at least one finger. If you are having a hand, wrist or foot surgery then all nail peruvian and artificial/acrylic nails must be removed from that hand or foot. 6. Avoid ALL Aspirin and non-steroidal anti-inflammatory drugs and certain vitamins (Ibuprofen, Advil, Aleve, Excedrin, Meloxicam, Celebrex, fish/krill oil, etc.) for 7 days prior to surgery as instructed by your surgeon and/or your prescribing doctor. Tylenol IS ALLOWED. If you are on Ticlid, Xarelto, Eliquis, Pradaxa, Plavix or Coumadin, please check with your prescribing doctor for instructions for when to stop them. 7. If you use an inhaler, continue to use it routinely. 8. Nothing to eat or drink (not even water, gum, mints, or hard candy!) AFTER midnight prior to your surgery. 9. Take only medications that you are instructed to on the morning of surgery with a TINY SIP OF WATER. 10. Choose a responsible adult that will be able to drive you home when you are discharged from your hospital stay for your surgery and can stay with you in your home for 24 hours after your procedure. You must NOT drive any vehicle or operate any machinery for 24 hours after surgery. 11. When you dress for your appointment, please wear loose fitting clothing that is appropriate to accommodate your surgical area procedure. BRING WITH YOU ANY DEVICES YOU MAY NEED: MAYLIN hose, ice machine, sling/swath, brace or special shoe, oversized zip-up or button up shirt, CPAP machine if staying overnight. 12. Do NOT wear jewelry, watches, or any piercings or metal for surgery- leave these valuables and money at home. 13. Do NOT wear contact lenses for surgery- glasses are okay if needed. 14. The anesthesiologist will talk with you the day of surgery and will ask you to sign a Consent Form. 15. Refrain from smoking or any type of tobacco use for at least 8 hours and marijuana for 24 hoursprior to arrival for your surgery. 16. Notify your surgeon if you develop any illness before your surgery. 17. If you are staying overnight, please DO NOT BRING your home medications with you. 18. If you have any questions prior to surgery, please call the Preadmission Testing office at [phone], Mon.-Fri. 7 a.m.-3 p.m. Leave a voicemail if needed. Pre-Surgery Instructions: Medication Instructions allopurinoL (ZYLOPRIM) 100 mg tablet Continue as prescribed, DO NOT take morning of procedure tamsulosin (FLOMAX) 0.4 mg capsule Continue as prescribed, DO NOT take morning of procedure traMADoL (ULTRAM) 50 mg tablet Continue as prescribed, DO NOT take morning of procedure How to Avoid an Infection after Your Surgery Your doctor will give you specific instructions, but remember: -ALWAYS wash hands before caring for your incision. -No picking, scratching, or rubbing your incision. -No creams, lotion, powder, rubbing alcohol or hydrogen peroxide on the incision (can harm the tissue and slow healing). -Your doctor will give you specific instructions for what type of dressing you will need and how often it will need changed for infection purposes. -No tight clothing on incision. -Do not allow anyone to touch your incision unless they are cleaning, checking, or redressing it (be sure they wash their hands first). -No contact of your incision with pets; avoid sleeping with pets. -Take full course of antibiotic if prescribed for you after surgery- do not stop unless directed anbaell your physician. You may also be given an antibiotic prior to your surgery to help prevent surgical site infections. -Eat a healthy and varied diet including proteins, fruits, and vegetables to help promote wound healing and keep blood sugars under control if you are diabetic. -Smoking slows the healing process by decreasing the amount of oxygen in your blood that is needed for tissue healing. Try to avoid or stop smoking if possible. LOOK at your incision each morning and each night to check the progress of healing. Some soreness, numbness, itching and/or mild bruising around the incision is normal. Call your doctor if you noticeany of the following: -Increased redness or hardening around the incision area. -Increased pain at the incision site. -Incision feels hot to the touch. -Swelling or pulling apart of the incision edges. -Yellow or green drainage or foul odor coming from the incision. -Bleeding from the incision (apply pressure as needed). -Fever higher than 101 degrees Fahrenheit for more than 4 hours. SHOWERING: Your doctor will give you specific instructions, but remember: -Be careful getting into and out of the shower. -Showers should be quick (5 minutes or less). -Use a clean washcloth to gently wash your incision with soap and water and pat the area dry with aclean towel. -No re-using wash cloths or towels; get a fresh one to clean your incision. -Do not soak in the bathtub, go swimming or use a hot tub (Jacuzzi), or perform activities where your incision is submerged in water or exposed to any fluids or substances until instructed by your doctor. -If your have the sticky strips (steri-strips) over the incision, it is OK to shower with them. Do not remove them. Let them fall off on their own. If you have a question, call your doctor s office. Go to the follow-up appointment with your doctor. documented in this encounterJoint [facility]09[facility] History of Present illness Narrative* Pardeep Teixeira, - 12/27/2024 10:15 AM EDT Images from the original note were not included. [facility] GENERAL SURG[facility] [id number] CONSULT NOTE CHIEF COMPLAINT Chief Complaint Patient presents with Hernia Left inguinal hernia, referred by Dr. Dayne Reyes Don Ruvalcaba is a 69 y.o. male who presents along with his with complaints of a left groinswelling and hernia that he noticed about 3-4 weeks ago. 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 He was placed on narcotics for his pain and discomfort. He denies any nausea vomiting but he was constipated several weeks ago and he has a hard lump when he saw his family practitioner. He is retired. MEDICATION Current Outpatient Medications: allopurinoL (ZYLOPRIM) 100 mg tablet, Take 1 tablet (100 mg total) by mouth in the morning., Disp: , Rfl: tamsulosin (FLOMAX) 0.4 mg capsule, Take 1 capsule (0.4 mg total) by mouth in the morning., Disp: ,Rfl: traMADoL (ULTRAM) 50 mg tablet, Take 1 tablet (50 mg total) by mouth 4 (four) times a day as neededfor pain., Disp: , Rfl: ALLERGY No Known Allergies MEDICAL HISTORY Past Medical History: Diagnosis Date Gout Hypertension SURGICAL HISTORY Past Surgical History: Procedure Laterality Date ARTHROSCOPY KNEE Left CATARACT EXTRACTION W/ INTRAOCULAR LENS IMPLANT Right CATARACT EXTRACTION W/ INTRAOCULAR LENS IMPLANT Left COLONOSCOPY COLONOSCOPY FINGER SURGERY Left 2003 index finger, amputated in farming accident SOCIAL HISTORY Social History Socioeconomic History Marital status: Spouse name: Not on file Number of children: Not on file Years of education: Not on file Highest education level: Not on file Occupational History Not on file Tobacco Use Smoking status: Former Types: Cigarettes Smokeless tobacco: Never Vaping Use Vaping status: Never Used Substance and Sexual Activity Alcohol use: Not Currently Comment: sober for over 8 years as of 2024 Drug use: Not Currently Sexual activity: Not Currently Partners: Female Other Topics Concern Not on file Social History Narrative Not on file Social Drivers of Health Financial Resource Strain: Not on file Food Insecurity: No Food Insecurity (12/27/2024) Hunger Screening Food Insecurity - Worry: Never True Food Insecurity - Inability: Never True Transportation Needs: Not on file Physical Activity: Not on file Stress: Not on file Social Connections: Not on file Interpersonal Safety: Not on file Housing Instability: Not on file FAMILY HISTORY Family History Problem Relation Age of Onset No Known Problems Mother No Known Problems Father REVIEW OF SYSTEMS: Constitutional: Denies fevers, denies recent illnesses. Eyes: Denies any vision changes. ENT: Denies any throat pain. Neck: Denies any neck pain. Cardiovascular denies chest pain. Denies palpitations. Respiratory: Denies shortness of breath, denies cough, denies history of asthma or any other pulmonary illnesses. Gastrointestinal: Negative for abdominal pain, nausea, melena, hematochezia, weight loss, change inbowel habits or weight loss or emesis. Genitourinary negative for dysuria hematuria urinary frequency or urgency. Musculoskeletal: Negative for extremity pains or joint discomfort. Neurologic: No change in sensation or paresthesias or history of seizure disorder skin: No rashes. Hematologic: No anemia. No purpura. No petechiae and no prolonged or excessive bleeding Allergic and immunologic: No pruritus. No swelling. Endocrine: No unexplained weight loss. No polydipsia. No polyuria. No polyphagia. PHYSICAL EXAM Constitutional: He is oriented to person, place, and time. Vital signs are normal. He appears well-developed and well-nourished. HEENT: Head: Normocephalic and atraumatic. Eyes: Conjunctivae, EOM and lids are normal. Neck: Trachea normal. Neck supple. No thyroid mass present. Cardiovascular: Normal rate and regular rhythm. Pulmonary/Chest: Effort normal and breath sounds normal. Abdominal: Soft. Positive obvious left inguinal hernia which is reducible rather large. He has a small umbilical hernia less than 5 mm that is reducible and asymptomatic Musculoskeletal: Normal range of motion. He is missing part of his left index finger. Lymphadenopathy: He has no cervical adenopathy. Neurological: He is alert and oriented to person, place, and time. Skin: Skin is warm, dry and intact. Psychiatric: He has a normal mood and affect. His speech is normal and behavior is normal. Cognition and memory are normal. IMPRESSION 1. Left inguinal hernia reducible 2. Small umbilical hernia reducible less than 5 mm a symptoms; observation is in order for this. ASSESSMENT & PLAN Open left inguinal hernia repair with mesh. Risks benefits alternatives to surgery may include infection, bleeding, nerve injury, recurrence of the hernia, blood clots to legs or lungs, pneumonia, heart attack, stroke, and/or . He voiced understanding of the above and wished to proceed. He understands that afterwards he would be asked to take a stool softener twice daily for 6 weeks to prevent constipation from anesthesia or from the narcotics and while he is narcotics now he should start taking a stool softener as well. Weight limit restrictions we will be 5-10 lb for 6 weeks after surgery. He and his understood all the above and wished to proceed. Evaluation included: Preparing to see the patient (e.g., review of tests) Obtaining and/or reviewing separately obtained history Performing a medically appropriate examination and/or evaluation Counseling and educating the patient/family/caregiver Referring and communicating with other health child care giver - Pardeep Teixeira DO 12/27/24 10:17 AM This note was created with the assistance of a speech recognition program. While intending to generate a timely document that accurately reflects the content of the visit, no guarantee can be provided that every grammatical or spelling mistake has been or will be identified or corrected. Thank you for your understanding. documented in this encounterWexner Medical Center7 [employer] [facility] Medical [id number] History of Present illness Narrative* Casey Oscar MD - 12/12/2024 2:43 PM EDTAssociated Problem(s): Left inguinal hernia Painful bulge in left inguinal region most likely a hernia. Refer to surgery. Use ultram PRN. * Casey Oscar MD - 12/12/2024 2:00 PM EDT Images from the original note were not included. Subjective Patient ID: Eric Ruvalcaba is a 69 y.o. male who presents for Groin Pain (Burning pain). C/o pain in left inguinal region for several days. Not notice bulging but very uncomfortable. C/o burning sensation and at times severe pain. Frequently describes as dull ache. Pain with lifting, walking, bending, and standing. No pain or burning with urination. No pain in back. No rash on groin. No change in bowels but reports BM every few days. Review of Systems Constitutional: Negative for fatigue. [...] rales. Abdominal: General: Bowel sounds are normal. Palpations: Abdomen is soft. Comments: Painful bulge in left inguinal region Musculoskeletal: Left lower leg: No edema. Neurological: Mental Status: He is alert. Assessment/Plan Problem List Items Addressed This Visit Left inguinal hernia - Primary Painful bulge in left inguinal region most likely a hernia. Refer to surgery. Use ultram PRN. Relevant Medications traMADol (Ultram) 50 MG tablet Other Relevant Orders Ambulatory referral to General Surgery documented in this encounterBates County Memorial [id number] History of Present illness Narrative* Casey Oscar MD - 09/20/2024 1:57 PM EDTAssociated Problem(s): Benign prostatic hyperplasia with nocturia Signs of enlarged prostate and try flomax. Repeat PSA with %free. * Casey Oscar MD - 09/20/2024 1:57 PM EDTAssociated Problem(s): Polyuria Urinary symptoms likely related to BPH. UA normal and will send for culture. * Casey Oscar MD - 09/20/2024 1:15 PM EDT Images [...] PSA, total and free documented in this encounterBates County Memorial [id number] History of Present illness Narrative* Sunday Arenas DO - 03/01/2024 2:00 PM EST General Surgery H&P Eric Ruvalcaba 1955 Eric Ruvalcaba is a 69 y.o. male presents today for a colonoscopy consult. Pt admits to having a colonoscopy before in 2010 and it was normal. Pt denies abdominal pain. Pt denies rectal bleeding. Pt denies changes in bowel movements. Pt denies a family history of colon cancer that they know of. Pt denies any concern today. Denies hx of unplanned weight loss. Denies fevers, chills, or sweats. Deniesnausea or vomiting. SUBJECTIVE: MEDICATIONS: ALLERGIES Current Outpatient Medications Medication Instructions allopurinol (ZYLOPRIM) 100 mg, Oral, Daily bisacodyl (DULCOLAX) 5 mg, Oral, Once, Do not crush, chew, or split. Take as detailed on clinic hand out for colonoscopy prep polyethylene glycol (PEG) 3350 (GLYCOLAX) 238 g, Oral, Once, Take as detailed from clinic hand out for colonoscopy prep No Known Allergies PAST MEDICAL HISTORY: SOCIAL HISTORY SURGICAL HISTORY: History reviewed. No pertinent past medical history. Social History Tobacco Use Smoking status: Never Smokeless tobacco: Never History reviewed. No pertinent surgical history. No family history on file. No Known Allergies History reviewed. No pertinent surgical history. Tobacco Use: Low Risk (03/01/2024) Patient History Smoking Tobacco Use: Never Smokeless Tobacco Use: Never Passive Exposure: Not on file Alcohol Use: Not on file Depression: Not at risk (02/28/2024) PHQ-2 PHQ-2 Score: 0 Physical Activity: Not on file REVIEW OF SYMPTOMS: Review of Systems All other systems reviewed and are negative. 10 systems were reviewed. Positives noted above. Remainder are negative per [facility] guidelines. OBJECTIVE: Visit Vitals Pulse 91 Resp 14 Ht 5' 10 Wt 177 lb SpO2 96% BMI 25.40 kg/m Smoking Status Never BSA 1.99 m Physical Exam Vitals reviewed. General: AAOx3, NAD Head: atraumatic normocephalic Neck: trachea midline. No masses or lymphadenopathy Heart: Regular rate and rhythm Lungs: equal chest rise and fall, non labored breathing Abdomen: soft, nontender, and non distended Ext: motor 5/5 all extremities with no gross deformities Psych: alert and oriented, behavior appropriate ASSESSMENT AND PLAN: Assessment/Plan Diagnoses and all orders for this visit: Colon cancer screening - Ambulatory referral to General Surgery - bisacodyl (Dulcolax) 5 MG EC tablet; Take 1 tablet (5 mg) by mouth 1 time for 1 dose Do not crush, chew, or split. Take as detailed on clinic hand out for colonoscopy prep - polyethylene glycol, PEG, 3350 (Glycolax) 17 GM/SCOOP powder; Take 238 g by mouth 1 (one) time for 1 dose Take as detailed from clinic hand out for colonoscopy prep Plan: Patient is average risk for colon cancer. Colonoscopy can be scheduled electively. Patient informedof the risks of procedure which include but not limited to bleeding, perforation, and risks of anesthesia. Patient understood risks and signed informed consent for the procedure under monitored anesthesia care. Handout for bowel prep provided in clinic. Patient was informed of the need for a ride home from the hospital and the need for someone to be with them for the following 24 hrs post procedure. Thank you, Anderson Arenas DO documented in this encounterBates County Memorial [id number] History of Present illness Narrative* Casey Oscar MD - 02/28/2024 12:14 PM ESTAssociated Problem(s): Medicare annual wellness visit, subsequent Due for labs. Over 10 years since last colonoscopy and willing to have repeat procedure. Referral in chart. Discussed proper diet and regular aerobic exercise. Need aerobic exercise 5-6 days a week for 30 minutes at a time. Smaller portions and limit total calories. Tetanus every 10 years. Advised not to smoke. * Casey Oscar MD - 02/28/2024 11:30 AM EST Images from the original note were not included. Subjective Patient ID: Eric Ruvalcaba is a 69 y.o. male who presents for Medicare Annual Wellness Visit Subsequent (Wellness/). Presents for medicare annual wellness visit. Patient feels well today. Weight down 11 pounds in thepast year. Tries to stay active around house and walk several days a week. Tries to watch diet and eat healthy. Increased fruits and vegetables. Smaller portions and limits snacking. Tries to limit total daily calories. Due for labs. Review of Systems Constitutional: Negative for fatigue. [...] There is no guarding or rebound. Musculoskeletal: General: Normal range of motion. Left lower leg: No edema. Neurological: General: No focal deficit present. Mental Status: He is alert. Cranial Nerves: No cranial nerve deficit. Deep Tendon Reflexes: Reflexes normal. Assessment/Plan Problem List Items Addressed This Visit Dyslipidemia (CMS/HCC) Relevant Orders Lipid panel Gout, arthritis Relevant Medications allopurinol (Zyloprim) 100 MG tablet Other Relevant Orders Uric acid Medicare annual wellness visit, subsequent - Primary Due for labs. Over 10 years since last colonoscopy and willing to have repeat procedure. Referral in chart. Discussed proper diet and regular aerobic exercise. Need aerobic exercise 5-6 days a week for 30 minutes at a time. Smaller portions and limit total calories. Tetanus every 10 years. Advised not to smoke. Encounter for long-term (current) use of medications Relevant Orders Basic metabolic panel CBC and differential Hepatic function panel Screening PSA (prostate specific antigen) Relevant Orders PSA Other Visit Diagnoses Colon cancer screening Relevant Orders Ambulatory referral to General Surgery documented in this encounterNONC HealthcareEvaluation note* Diagnosis Gout, arthritis- Primary Gouty arthropathy, unspecified Medicare annual wellness visit, subsequent- Primary Dyslipidemia (CMS/HCC) Other and unspecified hyperlipidemia Encounter for long-term (current) use of medications Encounter for long-term (current) use of other medications Screening PSA (prostate specific antigen) Special screening for malignant neoplasm of prostate Gout, arthritis Gouty arthropathy, unspecified Colon cancer screening Special screening for malignant neoplasms, colon documented [facility] encounter [facility]* Diagnosis Gout, arthritis- Primary Gouty arthropathy, unspecified Medicare annual wellness visit, subsequent- Primary Dyslipidemia (CMS/HCC) Other and unspecified hyperlipidemia Encounter for long-term (current) use of medications Encounter for long-term (current) use of other medications Screening PSA (prostate specific antigen) Special screening for malignant neoplasm of prostate Gout, arthritis Gouty arthropathy, unspecified Colon cancer screening Special screening for malignant neoplasms, colon Colon cancer screening- Primary Special screening for malignant neoplasms, colon documented [facility]* Diagnosis Gout, arthritis- Primary Gouty arthropathy, unspecified Medicare annual wellness visit, subsequent- Primary Dyslipidemia (CMS/HCC) Other and unspecified hyperlipidemia Encounter for long-term (current) use of medications Encounter for long-term (current) use of other medications Screening PSA (prostate specific antigen) Special screening for malignant neoplasm of prostate Gout, arthritis Gouty arthropathy, unspecified Colon cancer screening Special screening for malignant neoplasms, colon Polyuria- Primary Benign prostatic hyperplasia with nocturia documented [facility] encounter [facility]* Diagnosis Gout, arthritis- Primary Gouty arthropathy, unspecified Medicare annual wellness visit, subsequent- Primary Dyslipidemia Other and unspecified hyperlipidemia Encounter for long-term (current) use of medications Encounter for long-term (current) use of other medications Screening PSA (prostate specific antigen) Special screening for malignant neoplasm of prostate Gout, arthritis Gouty arthropathy, unspecified Colon cancer screening Special screening for malignant neoplasms, colon Polyuria- Primary Benign prostatic hyperplasia with nocturia Left inguinal hernia- Primary Inguinal hernia without mention of obstruction or gangrene, unilateral or unspecified, (not specified as recurrent) [facility]* Diagnosis Left inguinal hernia- Primary Inguinal hernia without mention of obstruction or gangrene, unilateral or unspecified, (not specified as recurrent) [facility]* Diagnosis Preop examination- Primary Unspecified pre-operative examination Hypertension, unspecified type Preop examination Unspecified pre-operative examination Hypertension, unspecified type [facility] SystemEvaluation note* Diagnosis Status post left inguinal hernia repair- Primary Other postprocedural status documented in this encounter [facility] SystemInstructionsNot on filedocumented in this encounter [facility] LabInstructionsNot on filedocumented in this encounter [facility] Summary Purpose Family History No Family History Records FoundNo Family History Records FoundNo Family History Records FoundNo Family History Records FoundNo Family History Records Found Advance Directives No Advanced Directives Records FoundDocuments on File TypeDate RecordedPatient RepresentativeExplanationDurable Power of Stonemason Apprentice 01/09/2025 7:29 AMLiving Will01/09/2025 7:27 AM Additional Source Comments (unrecognized sect ion and content) No Status Records FoundNo Status Records FoundNo Status Records FoundNo Status Records FoundNo Status Records Found INFORMATION SOURCE (unrecogn ized section and content) DATE CREATED AUTHOR 01/17/2022 [facility] DATE CREATED AUTHOR AUTHOR'S ORGANIZ ATION 03/30/2024 [facility] DATE CREATED AUTHOR AUTHOR'S ORGANIZ ATION 12/14/2024 [facility] DATE CREATED AUTHOR AUTHOR'S ORGANIZ ATION 01/10/2025 [facility] DATE CREATED AUTHOR AUTHOR'S ORGANIZ ATION 01/25/2025 [facility] Care Teams (unrecognized sec tion and content) Team MemberRelationshipSpecialtyStart DateEnd Date Casey Oscar MD [address] [place] [address] PCP - GeneralFamily Medicine09/21/23Team MemberRelationshipSpecialtyStart DateEnd Date Casey Oscar MD [address] [place] [address] PCP - GeneralFamily Medicine09/21/23Team MemberRelationshipSpecialtyStart DateEnd Date Casey Oscar MD [address] [place] [address] PCP - GeneralFamily Medicine09/21/23Team MemberRelationshipSpecialtyStart DateEnd Date Casey Oscar MD [address] [place] [address] PCP - GeneralFamily Medicine09/21/23Team MemberRelationshipSpecialtyStart DateEnd Date Casey Oscar MD [address] [place] [address] PCP - GeneralFamily Medicine09/21/23 Casey Oscar MD [address] [place] [address] PCP - [facility]05/26/24Team MemberRelationshipSpecialtyStart DateEnd Date Casey Oscar MD [address] [place] [address] PCP - [facility]09/21/23Team MemberRelationshipSpecialtyStart DateEnd Date Casey Oscar MD [address] [place] [address] PCP - [facility]09/21/23 Casey Oscar MD [address] [place] [address] PCP - [facility]05/26/24Team MemberRelationshipSpecialtyStart DateEnd Date Casey Oscar MD [address] [place] [address] [facility] - [facility]09/21/23 Casey Oscar MD [address] [place] [address] PCP - [facility]05/26/24Team MemberRelationshipSpecialtyStart DateEnd Date Casey Oscar MD [address] [place] [address] PCP - [facility]09/21/23 Casey Oscar MD [address] [place] [address] PCP - [facility]05/26/24Team MemberRelationshipSpecialtyStart DateEnd Date Casey Oscar MD [address] [place] [address] PCP - GeneralFamily Medicine12/27/24Team MemberRelationshipSpecialtyStart DateEnd Date Casey Oscar MD [address] [place] [phone] PCP - GeneralFamily Medicine12/27/24Team MemberRelationshipSpecialtyStart DateEnd Date Casey Oscar MD [address] [place] [phone] PCP - GeneralFamily Medicine12/27/24 Reason for Visit (unrecogniz ed section and content) ReasonCommentsMedicare Annual Wellness Visit SubsequentWellnessReasonComments ColonoscopyPt presents today for a colonoscopy consult. Pt denies/admits to: admits to having a colonoscopy before. Last colonoscopy was in 2010 and it was normal. Pt denies abdominal pain. Pt denies rectal bleeding. Pt denies changes in bowel movements. Pt denies a family history of colon cancer that they know of. Pt denies any concern today.SpecialtyDiagnoses / ProceduresReferred By ContactReferred To ContactGeneral Surgery Diagnoses Colon cancer screening Procedures OR OFFICE/OUTPATIENT [facility] 60 MINUTES Casey Oscar MD [address] [place] [address] Phone: tel: fax: Sunday Arenas DO [address] [facility] [address] [place] [address] Phone: tel: fax: Referral IDStatusReasonStart DateExpiration DateVisits RequestedVisits [id number] Specialty Services Required [id number] PainBurning painReason CommentsHerniaLeft inguinal hernia, referred by Dr. FordpecialtyDiagnoses / ProceduresReferred By ContactReferred To ContactGeneral Surgery Diagnoses Left inguinal hernia Procedures OR OFFICE OUTPATIENT VISIT 60-74 MINS [facility] [id number] (SNOMED CT) - AMB REFERRAL TO GENERAL SURGERY Casey Oscar MD [address] [place] [address] Phone: tel: fax: Pardeep Teixeira, [address] [place] [address] Phone: tel: fax: Referral IDStatusReasonStart DateExpiration DateVisits RequestedVisits [id number]/[id number] op left inguinal hernia repair performed 01/09/25 at [facility] FOR RECORDS PERTAINING TO PATIENTS WHO ARE OR HAVE BEEN ENROLLED IN A CHEMICAL DEPENDENCY/SUBSTANCEABUSE PROGRAM, SOME INFORMATION MAY BE OMITTED. This clinical summary was aggregated from multiple sources. Caution should be exercised in using it in the provision of clinical care. This summary normalizes information from multiple sources, and as a consequence, information in this document may materially change the coding, format and clinical context of patient data. In addition, data may be omitted in some cases. CLINICAL DECISIONS SHOULD BE BASED ON THE PRIMARY CLINICAL RECORDS. [employer] [facility] provides no warranty or guarantee of the accuracy or completeness of information in this document.
[2025-03-05 13:23] LABS: Hematocrit 41.1 % (42.0-54.0); Hemoglobin 14.1 g/dL (14.0-18.0); Immature Granulocytes Abs Auto 0.03 10^3/uL (0.00-0.03); Immature Granulocytes Pct Auto 0.4 % (0.0-0.5); Lymphocytes Absolute Auto 2.3 10^3/uL (1.2-3.8); Mean Corpuscular HGB Conc 34.3 g/dL (29.9-35.2); Mean Corpuscular Hemoglobin 31.2 pg (25.9-34.0); Mean Corpuscular Volume 90.9 fL (80.0-94.0); Platelet Count 242 10^3/uL (150-450); Red Blood Count 4.52 10^6/uL (4.70-6.10); White Blood Count 8.5 10^3/uL (4.0-11.0)
[2025-03-05 14:07] LABS: Alanine Aminotransferase 22 U/L (16-63); Albumin Globulin Ratio 1.1; Albumin Level 3.6 g/dL (3.4-5.0); Alkaline Phosphatase 69 U/L (46-116); Anion Gap 12.2; Aspartate Amino Transferase 18 U/L (15-37); Blood Urea Nitrogen 20.0 mg/dL (7.0-18.0); Calcium 8.7 mg/dL (8.5-10.1); Carbon Dioxide 27.8 mmol/L (21.0-32.0); Chloride 104 mmol/L (98-107); Cholesterol 179 mg/dL (<=200); Estimated GFR (African America >60 (>=60 mL/min/1.73m^2); Estimated GFR (Non-African Ame >60 (>=60 mL/min/1.73m^2); Globulin 3.4 g/dL; Glucose 96 mg/dL (74-106); HDL Cholesterol 59 mg/dL (40-60); Potassium 4.0 mmol/L (3.5-5.1); Sodium 140 mmol/L (136-145); Thyroid Stimulating Hormone 3.730 uIU/mL (0.358-3.740); Total Protein 7.0 g/dL (6.4-8.2); Triglycerides 63 mg/dL (<=150); VLDL CHOLESTEROL 12.6 mg/dL
== END 2025-03-05 12:58 | disposition home or self-care (01) ==
LOC: LAB 13:00
PROVIDERS: PCP Family Medicine; Visit Provider Family Medicine
DX: E78.5 Hyperlipidemia, unspecified (principal); R53.83 Other fatigue; Z79.899 Other long term (current) drug therapy; Z12.5 Encounter for screening for malignant neoplasm of prostate
CPT/HCPCS: 36415; 80053; 80061; 84443; 85025; G0103